=== PATIENT | female | born 1950 | race Two or more races ===

== ENCOUNTER 2023-01-07 20:46 | Inpatient (IN) | payer OTHER ==
[~2023-01-07] VITALS: Ht 162.6 cm; Wt 70.0 kg
[2023-01-07] MEDS ORDERED: ALBUTEROL MEDNEB 2.5 mg/3ml NEB ONE (20:51)
[2023-01-07] MEDS ORDERED: IPRATROPIUM BROM 0.5 MG/2.5ML INH SOL ONE (20:51)
[2023-01-07 21:00] VITALS: O2SAT 99
[2023-01-07] MEDS ORDERED: IPRATROPIUM BROM 0.5 MG/2.5ML INH SOL HHN ONE (21:15)
[2023-01-07] MEDS ORDERED: MAGNESIUM SULFATE 1GM/100ML 100 ML IV ONE (21:15)
[2023-01-07] MEDS ORDERED: ONDANSETRON HCL 4 MG/2 ML VIAL IV ONE (21:15)
[2023-01-07] MEDS ORDERED: TERBUTALINE SULFATE 1 MG/ML 1ML VIAL SC ONE (21:15)
[2023-01-07] MEDS ORDERED: ALBUTEROL SULF 2.5 MG/0.5ML(0.5%) NEB SOLN HHN ONE (21:15)
[2023-01-07] MEDS ORDERED: cefTRIAXone 1GM/50ML D5W 50 ML IV ONE (21:15)
[2023-01-07] MEDS ORDERED: PANTOPRAZOLE 40 MG/10 ML VIAL INJ IV ONE (21:15)
[2023-01-07] MEDS ORDERED: PROMETHAZINE-DM 5 ML ORAL SYRUP PO ONE (21:15)
[2023-01-07] MEDS ORDERED: AZITHROMYCIN 500MG/ 250ML 250 ML IV ONE (21:15)
[2023-01-07] MEDS ORDERED: methylPREDNISolone SOD SUCC 125 MG/2 ML VL IV ONE (21:15)
[2023-01-07] MEDS ORDERED: ALBUTEROL MEDNEB 2.5 mg/3ml NEB NEB ONE (21:15)
[2023-01-07 21:29] LABS: Basophils # (auto) 0 10 ^3/uL (0-0.2); Basophils % (auto) 0.4 % (0.0-2.0); Eosinophils # (auto) 0 10 ^3/uL (0-0.8); Eosinophils % (auto) 0.4 % (0.0-7.0); Hematocrit 45.6 % (36.0-46.0); Hemoglobin 14.9 g/dL (12.2-16.2); Lymphocytes # (auto) 1.8 10 ^3/uL (0.4-5.4); Lymphocytes % (auto) 15.4 % (10.0-50.0); Mean Corpuscular Hemoglobin 30.5 pg (28.0-32.0); Mean Corpuscular Hgb Conc. 32.7 g/dL (32.0-36.0); Mean Corpuscular Volume 93.4 fL (80.0-100.0); Monocytes # (auto) 0.9 10 ^3/uL (0-1.3); Monocytes % (auto) 8.1 % (0.0-12.0); Neutrophils # (auto) 8.7 10 ^3/uL (1.6-8.6); Neutrophils % (auto) 75.7 % (37.0-80.0); Nucleated Red Blood Cells % 0.3 %; Red Blood Cells 4.88 10^6/uL (4.0-5.20); Red Cell Distribution Width 13.7 % (11.8-14.3); White Blood Cell 11.5 10^3/uL (4.4-10.8)
[2023-01-07 21:38] LABS: Base Excess 0.1 mmol/L (-2.0-2.0)
[2023-01-07 21:44] LABS: Alanine Aminotransferase 21 U/L (7-40); Albumin 4.4 g/dL (3.2-4.8); Alkaline Phosphatase 76 U/L (46-116); Anion Gap 4 (5-15); Aspartate Aminotransferase 21 U/L (13-40); BUN/Creatinine Ratio 18.2 (10.0-20.0); Blood Urea Nitrogen 10 mg/dL (9-23); Calcium 8.9 mg/dL (8.7-10.4); Carbon Dioxide 27 mmol/L (20-30); Chloride 105 mmol/L (98-107); Glucose 128 mg/dL (74-106); Potassium 4.1 mmol/L (3.5-5.1); Sodium 136 mmol/L (136-145)
[2023-01-07 21:45] LABS: Bilirubin, Total 0.8 mg/dL (0.2-1.0); Total Protein 6.9 g/dL (5.7-8.2)
[2023-01-07 21:51] LABS: INR 1.04 (0.9-1.15); Partial Thromboplastin Time 24.2 SEC (24.5-34.5); Prothrombin Time 10.9 sec (9.3-11.8)
[2023-01-08] VITALS (9 sets, daily range): BP systolic 149; BP diastolic 78; PULSE 76–106; RESP 14–24; TEMP 98.4; O2SAT 92–98
[2023-01-08 02:06] LABS: Rapid Influenza A Negative (Negative); Rapid Influenza B Negative (Negative)
[2023-01-08 02:07] LABS: COVID19 ANTIGEN SOFIA FIA NEGATIVE (NEGATIVE)
[2023-01-08] MEDS ORDERED: ACETAMINOPHEN 325 MG TAB PO ONE (06:00)
[2023-01-08] MEDS ORDERED: NITROGLYCERIN 0.4 MG SL TAB SL PRN (07:15)
[2023-01-08] MEDS ORDERED: MORPHINE SULFATE INJ 2 MG/ml SYRG IV PRN (07:15)
[2023-01-08] MEDS ORDERED: ONDANSETRON HCL 4 MG/2 ML VIAL IV PRN (07:15)
[2023-01-08] MEDS: IPRATROPIUM BROM 0.5 MG/2.5ML INH SOL NEB PRN ×3 (09:26→21:05)
[2023-01-08] MEDS: ALBUTEROL MEDNEB 2.5 mg/3ml NEB NEB PRN ×3 (09:26→21:05)
[2023-01-08] MEDS ORDERED: AZITHROMYCIN 500MG/ 250ML 250 ML IV SCH (10:00)
[2023-01-08] MEDS ORDERED: ENOXAPARIN SOD 40 MG/0.4 ML SYRINGE SC SCH (10:00)
[2023-01-08] MEDS ORDERED: ACETAMINOPHEN 325 MG TAB PO PRN (16:45)
[2023-01-08] MEDS ORDERED: ATORVASTATIN 20 MG TAB PO SCH (22:00)
[2023-01-09 01:51] VITALS: BP 135/60; PULSE 88; RESP 24; TEMP 98.7; O2SAT 94
[2023-01-09] MEDS ORDERED: LEVOTHYROXINE SODIUM 100 MCG TAB PO SCH (07:00)
== END 2023-01-10 01:51 | disposition short-term general hospital (02) | DRG 193 ==
LOC: EDBD 20:46 → ER 20:46 → TELE 01-08 07:11
PROVIDERS: ADMIT Nurse Practitioner; ATTEND Internal Medicine
PROC: 5A09357 Assistance with Respiratory Ventilation, Less than 24 Consecutive Hours, Continuous Positive Airway Pressure (ICD-10-PCS; principal; 2023-01-07)
DX: J18.9 Pneumonia, unspecified organism (principal); J96.01 Acute respiratory failure with hypoxia; J45.902 Unspecified asthma with status asthmaticus; J44.0 Chronic obstructive pulmonary disease with (acute) lower respiratory infection; R79.89 Other specified abnormal findings of blood chemistry; Z20.822 Contact with and (suspected) exposure to COVID-19; Z88.6 Allergy status to analgesic agent; Z88.0 Allergy status to penicillin; Z88.5 Allergy status to narcotic agent; Z88.2 Allergy status to sulfonamides; Z90.11 Acquired absence of right breast and nipple
CPT/HCPCS: 36415; 36600; 80053; 82805; 83605; 83735; 83880; 84484; 85025; 85379; 85610; 85730; 87040; 87426; 87804; 93005; 94640; 94644; 94660; 96365; 96375; C9113; G0378; J0696

== ENCOUNTER 2023-05-30 02:48 | Inpatient (IN) | payer OTHER ==
[~2023-05-30] VITALS: Ht 167.6 cm; Wt 73.4 kg
[2023-05-30] VITALS (11 sets, daily range): BP systolic 125–170; BP diastolic 73–85; PULSE 60–114; RESP 18–28; TEMP 97.3–98.3; O2SAT 94–100
[2023-05-30 03:29] LABS: Basophils # (auto) 0 10 ^3/uL (0-0.2); Basophils % (auto) 0.5 % (0.0-2.0); Eosinophils # (auto) 0 10 ^3/uL (0-0.8); Eosinophils % (auto) 0.3 % (0.0-7.0); Hemoglobin 14.8 g/dL (12.2-16.2); Lymphocytes # (auto) 1.6 10 ^3/uL (0.4-5.4); Lymphocytes % (auto) 16.1 % (10.0-50.0); Mean Corpuscular Hemoglobin 30.5 pg (28.0-32.0); Mean Corpuscular Volume 92.4 fL (80.0-100.0); Monocytes # (auto) 0.5 10 ^3/uL (0-1.3); Monocytes % (auto) 5.4 % (0.0-12.0); Neutrophils # (auto) 7.7 10 ^3/uL (1.6-8.6); Neutrophils % (auto) 77.7 % (37.0-80.0); Red Blood Cells 4.87 10^6/uL (4.0-5.20); Red Cell Distribution Width 13.8 % (11.8-14.3); White Blood Cell 9.9 10^3/uL (4.4-10.8)
[2023-05-30] MEDS: TERBUTALINE SULFATE 1 MG/ML 1ML VIAL SC ONE ×2 (03:30→05:15)
[2023-05-30] MEDS: MAGNESIUM SULFATE 1GM/100ML 100 ML IV SCH (03:30)
[2023-05-30] MEDS: ACETAMINOPHEN 325 MG TAB PO ONE (03:30)
[2023-05-30 03:42] LABS: Partial Thromboplastin Time 26.5 SEC (24.5-34.5); Prothrombin Time 10.5 sec (9.3-11.8)
[2023-05-30 03:43] LABS: Alanine Aminotransferase 18 U/L (7-40); Albumin 4.2 g/dL (3.2-4.8); Alkaline Phosphatase 72 U/L (46-116); Anion Gap 5 (5-15); Aspartate Aminotransferase 17 U/L (13-40); BUN/Creatinine Ratio 12.5 (10.0-20.0); Blood Urea Nitrogen 7 mg/dL (9-23); Calcium 9.3 mg/dL (8.7-10.4); Carbon Dioxide 25 mmol/L (20-30); Chloride 107 mmol/L (98-107); Glucose 148 mg/dL (74-106); Magnesium 2.6 mg/dL (1.6-2.6); Potassium 4.1 mmol/L (3.5-5.1); Sodium 137 mmol/L (136-145)
[2023-05-30 03:44] LABS: Bilirubin, Total 1.1 mg/dL (0.2-1.0); Total Protein 7.1 g/dL (5.7-8.2)
[2023-05-30 04:01] LABS: Base Excess -0.2 mmol/L (-2.0-2.0)
[2023-05-30] MEDS: IPRATROPIUM BROM 0.5 MG/2.5ML INH SOL HHN ONE (04:11)
[2023-05-30] MEDS: ALBUTEROL SULF 2.5 MG/0.5ML(0.5%) NEB SOLN HHN ONE (04:11)
[2023-05-30] MEDS: SODIUM CHLORIDE 0.9% 1,000 ML IV ONE (05:09)
[2023-05-30] MEDS: cefTRIAXone 1GM/50ML D5W 50 ML IV ONE ×2 (05:10→14:33)
[2023-05-30] MEDS: methylPREDNISolone SOD SUCC 125 MG/2 ML VL IV ONE (05:10)
[2023-05-30] MEDS: DOXYCYCLINE 100MG/250ML 250 ML IV ONE (05:51)
[2023-05-30] MEDS ORDERED: ONDANSETRON HCL 4 MG/2 ML VIAL IV PRN (07:00)
[2023-05-30] MEDS ORDERED: ACETAMINOPHEN 325 MG TAB PO PRN (07:00)
[2023-05-30] MEDS ORDERED: MORPHINE SULFATE INJ 2 MG/ml SYRG IV PRN (07:00)
[2023-05-30] MEDS ORDERED: NITROGLYCERIN 0.4 MG SL TAB SL PRN (07:00)
[2023-05-30 07:34] LABS: Chloride 106 mmol/L (98-107); Potassium 3.6 mmol/L (3.5-5.1); Sodium 138 mmol/L (136-145)
[2023-05-30 07:35] LABS: Anion Gap 7 (5-15); Carbon Dioxide 25 mmol/L (20-30)
[2023-05-30 07:36] LABS: Calcium 8.7 mg/dL (8.5-10.1)
[2023-05-30 07:40] LABS: BUN/Creatinine Ratio 15.7 (10.0-20.0); Blood Urea Nitrogen 8 mg/dL (9-23); Glucose 125 mg/dL (74-106)
[2023-05-30 08:07] LABS: LDL Cholesterol 81 mg/dL (< 100); Triglycerides 62 mg/dL (< 150)
[2023-05-30 08:09] LABS: Cholesterol 142 mg/dL (< 200); HDL Cholesterol 50 mg/dL (40-59)
[2023-05-30] MEDS: LEVOTHYROXINE SODIUM 100 MCG TAB PO SCH (08:15)
[2023-05-30 08:18] LABS: Urine Bacteria FEW /hpf (None Seen); Urine Blood TRACE /uL (Negative); Urine Clarity Turbid (Clear); Urine Color Light-Yellow (Yellow); Urine Hyaline Cast MOD /lpf (0 - 2); Urine Mucus FEW (None Seen); Urine Protein, UAD TRACE (Negative); Urine Specific Gravity 1.015 (1.001-1.035); Urine Urobilinogen Normal (Negative); Urine WBC 3 /hpf (0 - 5); Urine pH 5.5 (5.0-9.0)
[2023-05-30] MEDS: methylPREDNISolone SOD SUCC 40 MG/ML VL IV SCH (10:13)
[2023-05-30] MEDS: ASPirin 81 mg TAB PO SCH (10:14)
[2023-05-30] MEDS: ENOXAPARIN SOD 40 MG/0.4 ML SYRINGE SC SCH (10:14)
[2023-05-30] MEDS ORDERED: hydrALAZINE HCL 20 MG/ML VL IV PRN (11:00)
[2023-05-30] MEDS ORDERED: AZITHROMYCIN 500MG/ 250ML 250 ML IV ONE ×2 (12:30→13:30)
[2023-05-30] MEDS ORDERED: cefTRIAXone 1GM/50ML D5W 50 ML IV ONE (12:30)
[2023-05-30] MEDS: NICOTINE 21MG/24 HR TOPICAL PATCH TD ONE (13:10)
[2023-05-30] MEDS: AZITHROMYCIN 500MG/ 250ML 250 ML IV ONE (14:34)
[2023-05-30] MEDS ORDERED: TIOT17SP INH (15:37)
[2023-05-30] MEDS ORDERED: LEVO100T8 PO (15:37)
[2023-05-30] MEDS ORDERED: LEVO500T91 PO (15:37)
[2023-05-30] MEDS ORDERED: ATOR20TA50 PO (15:37)
[2023-05-30] MEDS ORDERED: IPRIH INH (15:37)
[2023-05-30] MEDS ORDERED: BUDE1AER16 INH (15:37)
[2023-05-30] MEDS ORDERED: MONT-8 PO (15:37)
[2023-05-30] MEDS ORDERED: LEVA1AER INH (15:37)
[2023-05-30] MEDS: ALBUTEROL SULF 2.5 MG/0.5ML(0.5%) NEB SOLN NEB SCH (18:12)
[2023-05-30] MEDS: IPRATROPIUM BROM 0.5 MG/2.5ML INH SOL NEB SCH (18:12)
[2023-05-30] MEDS: MONTELUKAST SODIUM 10 MG TAB PO SCH (22:51)
[2023-05-30] MEDS: ATORVASTATIN 20 MG TAB PO SCH (22:51)
[2023-05-31] VITALS (19 sets, daily range): BP systolic 114–134; BP diastolic 69–72; PULSE 67–88; RESP 16–20; TEMP 97.6–98.1; O2SAT 92–100
[2023-05-31 05:48] LABS: Basophils # (auto) 0 10 ^3/uL (0-0.2); Basophils % (auto) 0.1 % (0.0-2.0); Eosinophils # (auto) 0 10 ^3/uL (0-0.8); Hematocrit 39.1 % (36.0-46.0); Hemoglobin 12.7 g/dL (12.2-16.2); Lymphocytes # (auto) 0.8 10 ^3/uL (0.4-5.4); Lymphocytes % (auto) 9.3 % (10.0-50.0); Mean Corpuscular Hemoglobin 29.9 pg (28.0-32.0); Mean Corpuscular Hgb Conc. 32.5 g/dL (32.0-36.0); Mean Corpuscular Volume 91.8 fL (80.0-100.0); Monocytes # (auto) 0.2 10 ^3/uL (0-1.3); Monocytes % (auto) 2.1 % (0.0-12.0); Neutrophils # (auto) 7.8 10 ^3/uL (1.6-8.6); Neutrophils % (auto) 88.5 % (37.0-80.0); Red Blood Cells 4.26 10^6/uL (4.0-5.20); Red Cell Distribution Width 13.2 % (11.8-14.3); White Blood Cell 8.8 10^3/uL (4.4-10.8)
[2023-05-31 06:11] LABS: Alanine Aminotransferase 16 U/L (7-40); Alkaline Phosphatase 58 U/L (46-116); Anion Gap 4 (5-15); BUN/Creatinine Ratio 21.4 (10.0-20.0); Blood Urea Nitrogen 12 mg/dL (9-23); Calcium 9.1 mg/dL (8.7-10.4); Carbon Dioxide 27 mmol/L (20-30); Chloride 103 mmol/L (98-107); Glucose 134 mg/dL (74-106); Potassium 4.5 mmol/L (3.5-5.1); Sodium 134 mmol/L (136-145)
[2023-05-31 06:12] LABS: Albumin 3.7 g/dL (3.2-4.8); Aspartate Aminotransferase 14 U/L (13-40); Bilirubin, Total 0.7 mg/dL (0.2-1.0); Total Protein 6.1 g/dL (5.7-8.2)
[2023-05-31] MEDS: AZITHROMYCIN 500MG/ 250ML 250 ML IV SCH (09:27)
[2023-05-31] MEDS: cefTRIAXone 1GM/50ML D5W 50 ML IV SCH (09:27)
[2023-05-31] MEDS: ASPirin 81 mg TAB PO SCH (09:28)
[2023-05-31] MEDS: NICOTINE 21MG/24 HR TOPICAL PATCH TD SCH (09:28)
[2023-06-01] VITALS (16 sets, daily range): BP systolic 110–154; BP diastolic 65–84; PULSE 66–111; RESP 16–20; TEMP 97.6–99.1; O2SAT 91–100
== END 2023-06-01 23:55 | disposition short-term general hospital (02) | DRG 189 ==
LOC: ER 02:48 → EDBD 02:48 → TELE 07:00 → TELE-E-ADS 15:08 → TELE-WESTW 18:27
PROVIDERS: ADMIT Nurse Practitioner; ATTEND Internal Medicine
PROC: 5A09357 Assistance with Respiratory Ventilation, Less than 24 Consecutive Hours, Continuous Positive Airway Pressure (ICD-10-PCS; principal; 2023-05-30)
DX: J96.21 Acute and chronic respiratory failure with hypoxia (principal); J15.69 Pneumonia due to other Gram-negative bacteria; I21.A1 Myocardial infarction type 2; J15.9 Unspecified bacterial pneumonia; J44.1 Chronic obstructive pulmonary disease with (acute) exacerbation; J44.0 Chronic obstructive pulmonary disease with (acute) lower respiratory infection; J45.901 Unspecified asthma with (acute) exacerbation; E66.9 Obesity, unspecified; E03.9 Hypothyroidism, unspecified; E78.5 Hyperlipidemia, unspecified; F17.210 Nicotine dependence, cigarettes, uncomplicated; Z85.3 Personal history of malignant neoplasm of breast; Z88.0 Allergy status to penicillin; Z90.11 Acquired absence of right breast and nipple; Z88.5 Allergy status to narcotic agent; Z88.2 Allergy status to sulfonamides; Z88.8 Allergy status to other drugs, medicaments and biological substances; Z68.26 Body mass index [BMI] 26.0-26.9, adult
CPT/HCPCS: 36415; 36600; 71045; 80048; 80053; 80061; 81001; 82805; 83036; 83605; 83690; 83735; 83880; 84443; 84484; 85025; 85610; 85730; 87040; 87086; 93005; 93306; 94640; 94644; 94660; G0378; J3490

== ENCOUNTER 2023-09-03 18:20 | Emergency (ER) | payer OTHER ==
[~2023-09-03] VITALS: Ht 160 cm; Wt 70.0 kg
[~2023-09-03 18:20] MED LIST: ATOR20TA50 PO; BUDE1AER16 INH; IPRIH INH; LEVA1AER INH; LEVO100T8 PO; MONT-8 PO; TIOT17SP INH
[2023-09-03 18:52] LABS: Basophils # (auto) 0.1 10 ^3/uL (0-0.2); Basophils % (auto) 0.5 % (0.0-2.0); Eosinophils # (auto) 0.1 10 ^3/uL (0-0.8); Eosinophils % (auto) 0.9 % (0.0-7.0); Hematocrit 37.4 % (36.0-46.0); Hemoglobin 12.5 g/dL (12.2-16.2); Lymphocytes # (auto) 1.8 10 ^3/uL (0.4-5.4); Mean Corpuscular Hemoglobin 30.4 pg (28.0-32.0); Mean Corpuscular Hgb Conc. 33.5 g/dL (32.0-36.0); Mean Corpuscular Volume 90.8 fL (80.0-100.0); Monocytes # (auto) 0.9 10 ^3/uL (0-1.3); Monocytes % (auto) 8.8 % (0.0-12.0); Neutrophils # (auto) 7.7 10 ^3/uL (1.6-8.6); Neutrophils % (auto) 72.8 % (37.0-80.0); Nucleated Red Blood Cells % 0.1 %; Red Blood Cells 4.12 10^6/uL (4.0-5.20); Red Cell Distribution Width 14.1 % (11.8-14.3); White Blood Cell 10.6 10^3/uL (4.4-10.8)
[2023-09-03] MEDS: ALBUTEROL SULF 2.5 MG/0.5ML(0.5%) NEB SOLN NEB ONE (18:56)
[2023-09-03] MEDS: IPRATROPIUM BROM 0.5 MG/2.5ML INH SOL NEB ONE (18:57)
[2023-09-03] MEDS: methylPREDNISolone SOD SUCC 125 MG/2 ML VL IM ONE (19:09)
[2023-09-03 19:12] LABS: Alanine Aminotransferase 19 U/L (7-40); Albumin 3.9 g/dL (3.2-4.8); Alkaline Phosphatase 64 U/L (46-116); Anion Gap 6 (5-15); Aspartate Aminotransferase 14 U/L (13-40); BUN/Creatinine Ratio 13.8 (10.0-20.0); Blood Urea Nitrogen 8 mg/dL (9-23); Calcium 8.9 mg/dL (8.7-10.4); Carbon Dioxide 26 mmol/L (20-30); Chloride 105 mmol/L (98-107); Glucose 123 mg/dL (74-106); Potassium 3.6 mmol/L (3.5-5.1); Sodium 137 mmol/L (136-145)
[2023-09-03 19:13] LABS: Bilirubin, Total 0.8 mg/dL (0.2-1.0); Total Protein 6.4 g/dL (5.7-8.2)
[2023-09-03 19:35] VITALS: PULSE 100; RESP 25; O2SAT 98
[2023-09-03 21:30] VITALS: BP 136/64; PULSE 82; RESP 18; TEMP 98.7; O2SAT 98
== END 2023-09-03 21:44 | disposition home or self-care (01) ==
LOC: EDBD 18:20 → ER 18:29
DX: J45.901 Unspecified asthma with (acute) exacerbation (principal); J44.89 Other specified chronic obstructive pulmonary disease; F17.210 Nicotine dependence, cigarettes, uncomplicated; Z85.9 Personal history of malignant neoplasm, unspecified; Z98.890 Other specified postprocedural states; Z79.899 Other long term (current) drug therapy; Z88.0 Allergy status to penicillin; Z88.2 Allergy status to sulfonamides; Z88.6 Allergy status to analgesic agent; Z88.8 Allergy status to other drugs, medicaments and biological substances
CPT/HCPCS: 36415; 71045; 80053; 85025; 93005; 94640; 96372; 99285; J2919; J7644

== ENCOUNTER 2023-10-05 01:28 | Inpatient (IN) | payer OTHER ==
[2023-10-05] VITALS (12 sets, daily range): BP systolic 133–134; BP diastolic 61–78; PULSE 69–106; RESP 14–22; TEMP 97.6–98.2; O2SAT 3–100
[~2023-10-05] VITALS: Ht 167.6 cm; Wt 70.6 kg
[~2023-10-05 01:28] MED LIST changes: -BUDE1AER16 INH; +BUDE1AER16 PO
[2023-10-05] MEDS: methylPREDNISolone SOD SUCC 125 MG/2 ML VL IV ONE (02:01)
[2023-10-05] MEDS: IPRATROPIUM BROM 0.5 MG/2.5ML INH SOL HHN ONE (02:06)
[2023-10-05] MEDS: ALBUTEROL SULF 2.5 MG/0.5ML(0.5%) NEB SOLN HHN ONE (02:06)
[2023-10-05 02:21] LABS: Anion Gap 5 (5-15); Basophils # (auto) 0 10 ^3/uL (0-0.2); Basophils % (auto) 0.7 % (0.0-2.0); Carbon Dioxide 27 mmol/L (20-30); Chloride 108 mmol/L (98-107); Eosinophils # (auto) 0.1 10 ^3/uL (0-0.8); Eosinophils % (auto) 1.2 % (0.0-7.0); Hematocrit 37.5 % (36.0-46.0); Hemoglobin 12.4 g/dL (12.2-16.2); Lymphocytes # (auto) 1.8 10 ^3/uL (0.4-5.4); Lymphocytes % (auto) 25.8 % (10.0-50.0); Mean Corpuscular Hemoglobin 30.5 pg (28.0-32.0); Mean Corpuscular Hgb Conc. 32.9 g/dL (32.0-36.0); Mean Corpuscular Volume 92.5 fL (80.0-100.0); Monocytes # (auto) 0.6 10 ^3/uL (0-1.3); Monocytes % (auto) 9.1 % (0.0-12.0); Neutrophils # (auto) 4.4 10 ^3/uL (1.6-8.6); Neutrophils % (auto) 63.2 % (37.0-80.0); Platelet Count (auto) 294 10^3/uL (140-450); Potassium 3.6 mmol/L (3.5-5.1); Red Blood Cells 4.06 10^6/uL (4.0-5.20); Red Cell Distribution Width 14.3 % (11.8-14.3); Sodium 140 mmol/L (136-145)
[2023-10-05 02:22] LABS: Calcium 8.8 mg/dL (8.7-10.4)
[2023-10-05 02:26] LABS: Glucose 112 mg/dL (74-106)
[2023-10-05 02:27] LABS: BUN/Creatinine Ratio 15.7 (10.0-20.0); Blood Urea Nitrogen 8 mg/dL (9-23)
[2023-10-05 03:17] LABS: Rapid Influenza A Negative (Negative); Rapid Influenza B Negative (Negative)
[2023-10-05 03:18] LABS: COVID19 ANTIGEN SOFIA FIA NEGATIVE (NEGATIVE)
[2023-10-05 03:30] LABS: Base Excess 2.6 mmol/L (-2.0-2.0)
[2023-10-05] MEDS ORDERED: ACETAMINOPHEN 325 MG TAB PO PRN (05:00)
[2023-10-05] MEDS ORDERED: ONDANSETRON HCL 4 MG/2 ML VIAL IV PRN (05:00)
[2023-10-05] MEDS ORDERED: NITROGLYCERIN 0.4 MG SL TAB SL PRN (05:00)
[2023-10-05] MEDS: LEVOTHYROXINE SODIUM 100 MCG TAB PO SCH (06:51)
[2023-10-05] MEDS ORDERED: ASPirin 81 mg TAB PO SCH (10:00)
[2023-10-05] MEDS: NICOTINE 14 MG/24HR TOPICAL PATCH TD SCH (10:00)
[2023-10-05] MEDS: FUROSEMIDE 40 MG TAB PO SCH (10:13)
[2023-10-05] MEDS: ENOXAPARIN SOD 40 MG/0.4 ML SYRINGE SC SCH (10:13)
[2023-10-05] MEDS: IPRATROPIUM BROM 0.5 MG/2.5ML INH SOL NEB PRN (10:16)
[2023-10-05] MEDS: ALBUTEROL SULF 2.5 MG/0.5ML(0.5%) NEB SOLN NEB PRN (10:16)
[2023-10-05] MEDS: AZITHROMYCIN 500MG/ 250ML 250 ML IV ONE (12:01)
[2023-10-05] MEDS ORDERED: AZIT-43 PO (18:54)
[2023-10-05] MEDS ORDERED: ATORVASTATIN 20 MG TAB PO SCH (22:00)
[2023-10-06] VITALS (10 sets, daily range): BP systolic 119–147; BP diastolic 63–67; PULSE 57–89; RESP 16–20; TEMP 97.8–98.3; O2SAT 92–100
[2023-10-06 05:29] LABS: Basophils # (auto) 0.1 10 ^3/uL (0-0.2); Basophils % (auto) 0.7 % (0.0-2.0); Eosinophils # (auto) 0 10 ^3/uL (0-0.8); Eosinophils % (auto) 0.2 % (0.0-7.0); Hemoglobin 11.7 g/dL (12.2-16.2); Lymphocytes # (auto) 1.8 10 ^3/uL (0.4-5.4); Lymphocytes % (auto) 16.3 % (10.0-50.0); Mean Corpuscular Hemoglobin 30.9 pg (28.0-32.0); Mean Corpuscular Hgb Conc. 33.4 g/dL (32.0-36.0); Mean Corpuscular Volume 92.4 fL (80.0-100.0); Monocytes % (auto) 8.5 % (0.0-12.0); Neutrophils # (auto) 8.3 10 ^3/uL (1.6-8.6); Neutrophils % (auto) 74.3 % (37.0-80.0); Nucleated Red Blood Cells % 0.1 %; Platelet Count (auto) 282 10^3/uL (140-450); Red Blood Cells 3.79 10^6/uL (4.0-5.20); White Blood Cell 11.2 10^3/uL (4.4-10.8)
[2023-10-06 05:45] LABS: Alanine Aminotransferase 17 U/L (7-40); Albumin 3.7 g/dL (3.2-4.8); Alkaline Phosphatase 55 U/L (46-116); Anion Gap 3 (5-15); Aspartate Aminotransferase 14 U/L (13-40); Bilirubin, Total 0.7 mg/dL (0.2-1.0); Blood Urea Nitrogen 13 mg/dL (9-23); Carbon Dioxide 32 mmol/L (20-30); Chloride 105 mmol/L (98-107); Glucose 95 mg/dL (74-106); Potassium 3.7 mmol/L (3.5-5.1); Sodium 140 mmol/L (136-145)
[2023-10-06] MEDS: methylPREDNISolone SOD SUCC 40 MG/ML VL IV SCH (09:36)
[2023-10-06] MEDS: AZITHROMYCIN 500MG/ 250ML 250 ML IV SCH (09:37)
[2023-10-06 15:57] LABS: Urine Bacteria FEW /hpf (None Seen); Urine Blood TRACE /uL (Negative); Urine Clarity Turbid (Clear); Urine Color Colorless (Yellow); Urine Protein, UAD Negative (Negative); Urine Specific Gravity 1.009 (1.001-1.035); Urine Urobilinogen Normal (Negative); Urine WBC 575 /hpf (0 - 5); Urine WBC Clumps PRESENT /hpf (None Seen); Urine pH 5.5 (5.0-9.0)
[2023-10-06] MEDS ORDERED: PRED20TA2 PO (17:17)
[2023-10-06] MEDS ORDERED: AZIT-43 PO (17:17)
[2023-10-06] MEDS ORDERED: NITR-52 PO (17:17)
== END 2023-10-06 19:33 | disposition home or self-care (01) | DRG 189 ==
LOC: EDBD 01:28 → EDUNIT# 01:28 → ER 01:28 → TELE 04:52 → TELE-WESTW 15:19
PROVIDERS: ADMIT Internal Medicine Pulmonary Disease; ATTEND Internal Medicine Pulmonary Disease
DX: J96.21 Acute and chronic respiratory failure with hypoxia (principal); I21.A1 Myocardial infarction type 2; J44.1 Chronic obstructive pulmonary disease with (acute) exacerbation; J45.901 Unspecified asthma with (acute) exacerbation; N39.0 Urinary tract infection, site not specified; E03.9 Hypothyroidism, unspecified; Z20.822 Contact with and (suspected) exposure to COVID-19; F17.210 Nicotine dependence, cigarettes, uncomplicated; I25.10 Atherosclerotic heart disease of native coronary artery without angina pectoris; I50.9 Heart failure, unspecified; E66.9 Obesity, unspecified; I27.23 Pulmonary hypertension due to lung diseases and hypoxia; N18.9 Chronic kidney disease, unspecified; Z88.0 Allergy status to penicillin; Z99.81 Dependence on supplemental oxygen; Z90.13 Acquired absence of bilateral breasts and nipples; Z80.0 Family history of malignant neoplasm of digestive organs; Z85.3 Personal history of malignant neoplasm of breast; Z68.25 Body mass index [BMI] 25.0-25.9, adult
CPT/HCPCS: 36415; 36600; 71045; 80048; 80053; 81001; 82805; 83605; 83880; 84443; 84484; 85025; 85379; 87040; 87081; 87426; 87804; 93005; 94640; 96365; 96372; 96375; 99291; G0378

== ENCOUNTER 2023-10-18 14:37 | Inpatient (IN) | payer OTHER ==
[~2023-10-18] VITALS: Ht 160 cm; Wt 72.1 kg
[2023-10-18 01:00] VITALS: BP 117/76; PULSE 93; RESP 18; TEMP 97.6; O2SAT 95
[~2023-10-18 14:37] MED LIST changes: +AZIT-43 PO; +NITR-52 PO; +PRED20TA2 PO
[2023-10-18 15:09] VITALS: PULSE 115; RESP 24; O2SAT 93
[2023-10-18] MEDS: methylPREDNISolone SOD SUCC 125 MG/2 ML VL IM ONE (15:24)
[2023-10-18 15:39] LABS: Basophils # (auto) 0 10 ^3/uL (0-0.2); Basophils % (auto) 0.4 % (0.0-2.0); Eosinophils # (auto) 0.1 10 ^3/uL (0-0.8); Eosinophils % (auto) 1.4 % (0.0-7.0); Hematocrit 38.5 % (36.0-46.0); Lymphocytes # (auto) 2.4 10 ^3/uL (0.4-5.4); Lymphocytes % (auto) 22.5 % (10.0-50.0); Mean Corpuscular Hgb Conc. 33.8 g/dL (32.0-36.0); Mean Corpuscular Volume 91.5 fL (80.0-100.0); Monocytes # (auto) 0.7 10 ^3/uL (0-1.3); Monocytes % (auto) 6.4 % (0.0-12.0); Neutrophils # (auto) 7.4 10 ^3/uL (1.6-8.6); Neutrophils % (auto) 69.3 % (37.0-80.0); Platelet Count (auto) 258 10^3/uL (140-450); Red Blood Cells 4.21 10^6/uL (4.0-5.20); Red Cell Distribution Width 13.6 % (11.8-14.3); White Blood Cell 10.6 10^3/uL (4.4-10.8)
[2023-10-18] MEDS: methylPREDNISolone SOD SUCC 125 MG/2 ML VL IV ONE (15:50)
[2023-10-18 15:57] LABS: Alanine Aminotransferase 27 U/L (7-40); Albumin 4.1 g/dL (3.2-4.8); Alkaline Phosphatase 63 U/L (46-116); Anion Gap 5 (5-15); Aspartate Aminotransferase 16 U/L (13-40); BUN/Creatinine Ratio 12.5 (10.0-20.0); Bilirubin, Total 0.8 mg/dL (0.2-1.0); Blood Urea Nitrogen 7 mg/dL (9-23); Calcium 9.3 mg/dL (8.7-10.4); Carbon Dioxide 26 mmol/L (20-30); Chloride 106 mmol/L (98-107); Glucose 116 mg/dL (74-106); Sodium 137 mmol/L (136-145)
[2023-10-18 15:58] LABS: Total Protein 6.5 g/dL (5.7-8.2)
[2023-10-18] MEDS: ALBUTEROL SULF 2.5 MG/0.5ML(0.5%) NEB SOLN NEB ONE (16:01)
[2023-10-18] MEDS: IPRATROPIUM BROM 0.5 MG/2.5ML INH SOL NEB ONE (16:01)
[2023-10-18] MEDS: AZITHROMYCIN 500MG/ 250ML 250 ML IV ONE (16:34)
[2023-10-18 18:17] LABS: COVID19 ANTIGEN SOFIA FIA NEGATIVE (NEGATIVE); Rapid Influenza A Negative (Negative); Rapid Influenza B Negative (Negative)
[2023-10-18] MEDS ORDERED: DOCUSATE SOD 100 MG CAP PO PRN (18:30)
[2023-10-18] MEDS ORDERED: HYDROcodone-ACET 5/325MG TAB PO PRN (18:30)
[2023-10-18] MEDS ORDERED: HYDROmorphone HCL 2 MG/ML VL/or syr IV PRN (18:30)
[2023-10-18] MEDS ORDERED: ONDANSETRON HCL 4 MG/2 ML VIAL IV PRN (18:30)
[2023-10-18] MEDS ORDERED: ACETAMINOPHEN 325 MG TAB PO PRN (18:30)
[2023-10-18] MEDS: methylPREDNISolone SOD SUCC 125 MG/2 ML VL IV SCH (18:32)
[2023-10-18 18:40] LABS: Urine Bacteria None Seen /hpf (None Seen)
[2023-10-18 19:03] LABS: Urine Blood Negative /uL (Negative); Urine Clarity Clear (Clear); Urine Color Light-Yellow (Yellow); Urine Protein, UAD Negative (Negative); Urine Specific Gravity 1.009 (1.001-1.035); Urine Urobilinogen Normal (Negative); Urine WBC 1 /hpf (0 - 5)
[2023-10-18] MEDS: ALBUTEROL SULF 2.5 MG/0.5ML(0.5%) NEB SOLN NEB SCH (19:28)
[2023-10-18] MEDS: IPRATROPIUM BROM 0.5 MG/2.5ML INH SOL NEB SCH (19:28)
[2023-10-18 19:38] VITALS: BP 125/73; PULSE 101; RESP 20; O2SAT 96
[2023-10-18 19:38] LABS: Base Excess -2.6 mmol/L (-2.0-3.0)
[2023-10-18] MEDS: BUDESONIDE FORMOTEROL FUMARATE PO SCH (22:00)
[2023-10-18] MEDS: SODIUM CHLOR 0.9% PF (SALINE LOCK) 10ML VIAL/SYR IV SCH (22:25)
[2023-10-18 22:42] VITALS: BP 126/69; PULSE 104; RESP 21; TEMP 97.5; O2SAT 93
[2023-10-18 23:11] VITALS: PULSE 104; RESP 18; O2SAT 95
[2023-10-18 23:12] VITALS: O2SAT 95
[2023-10-19] VITALS (13 sets, daily range): BP systolic 107–135; BP diastolic 57–92; PULSE 67–94; RESP 16–20; TEMP 97.3–98.2; O2SAT 94–98
[2023-10-19] MEDS: LEVOTHYROXINE SODIUM 100 MCG TAB PO SCH (06:31)
[2023-10-19 07:05] LABS: Basophils # (auto) 0 10 ^3/uL (0-0.2); Basophils % (auto) 0.1 % (0.0-2.0); Eosinophils # (auto) 0 10 ^3/uL (0-0.8); Hematocrit 38.5 % (36.0-46.0); Hemoglobin 12.9 g/dL (12.2-16.2); Lymphocytes # (auto) 0.6 10 ^3/uL (0.4-5.4); Lymphocytes % (auto) 6.4 % (10.0-50.0); Mean Corpuscular Hemoglobin 30.8 pg (28.0-32.0); Mean Corpuscular Hgb Conc. 33.6 g/dL (32.0-36.0); Mean Corpuscular Volume 91.9 fL (80.0-100.0); Monocytes # (auto) 0.1 10 ^3/uL (0-1.3); Neutrophils # (auto) 8.5 10 ^3/uL (1.6-8.6); Neutrophils % (auto) 92.5 % (37.0-80.0); Nucleated Red Blood Cells % 0.1 %; Platelet Count (auto) 261 10^3/uL (140-450); Red Blood Cells 4.19 10^6/uL (4.0-5.20); Red Cell Distribution Width 13.7 % (11.8-14.3); White Blood Cell 9.2 10^3/uL (4.4-10.8)
[2023-10-19 07:21] LABS: Alanine Aminotransferase 24 U/L (7-40); Albumin 4.3 g/dL (3.2-4.8); Alkaline Phosphatase 64 U/L (46-116); Anion Gap 4 (5-15); Aspartate Aminotransferase 14 U/L (13-40); BUN/Creatinine Ratio 20.6 (10.0-20.0); Blood Urea Nitrogen 13 mg/dL (9-23); Calcium 9.5 mg/dL (8.7-10.4); Carbon Dioxide 29 mmol/L (20-30); Chloride 105 mmol/L (98-107); Glucose 151 mg/dL (74-106); Potassium 4.6 mmol/L (3.5-5.1); Sodium 138 mmol/L (136-145)
[2023-10-19 07:22] LABS: Bilirubin, Total 0.9 mg/dL (0.2-1.0); Total Protein 6.7 g/dL (5.7-8.2)
[2023-10-19] MEDS: methylPREDNISolone SOD SUCC 125 MG/2 ML VL IV SCH (09:54)
[2023-10-19] MEDS: ATORVASTATIN 20 MG TAB PO SCH (09:54)
[2023-10-19] MEDS: ENOXAPARIN SOD 40 MG/0.4 ML SYRINGE SC SCH (09:54)
[2023-10-19] MEDS: MONTELUKAST SODIUM 10 MG TAB PO SCH (09:55)
[2023-10-19] MEDS: TIOTROPIUM BROMIDE MONOHYDRATE PO SCH (09:59)
[2023-10-19 10:04] LABS: Triglycerides 50 mg/dL (< 150)
[2023-10-19 10:05] LABS: LDL Cholesterol 97 mg/dL (< 100)
[2023-10-19 10:07] LABS: Cholesterol 189 mg/dL (< 200); HDL Cholesterol 81 mg/dL (40-59)
[2023-10-19 11:10] LABS: T3 Total 0.82 ng/mL (0.60-1.81)
[2023-10-19 11:11] LABS: Free T3 2.55 pg/mL (2.3-4.2)
[2023-10-19] MEDS: AZITHROMYCIN 500MG/ 250ML 250 ML IV ONE (11:19)
[2023-10-19] MEDS: NICOTINE 21MG/24 HR TOPICAL PATCH TD ONE (17:04)
[2023-10-19] MEDS: CYANOCOBALAMIN (B-12) 1000 MCG/1 ML VIAL IM ONE (17:04)
[2023-10-19] MEDS: ERGOCALCIFEROL 50,000 UNIT(1.25MG) CAP PO SCH (18:37)
[2023-10-19] MEDS: IOHEXOL 350 MG/ML 100ML IJ ONE (18:38)
[2023-10-19] MEDS: cefTRIAXone 1GM/50ML D5W 50 ML IV ONE (21:41)
[2023-10-20] VITALS (12 sets, daily range): BP systolic 109–145; BP diastolic 56–79; PULSE 62–80; RESP 16–20; TEMP 97–98.5; O2SAT 95–100
[2023-10-20 07:05] LABS: Basophils # (auto) 0 10 ^3/uL (0-0.2); Basophils % (auto) 0.1 % (0.0-2.0); Eosinophils # (auto) 0 10 ^3/uL (0-0.8); Hematocrit 35.4 % (36.0-46.0); Hemoglobin 11.8 g/dL (12.2-16.2); Lymphocytes # (auto) 1.3 10 ^3/uL (0.4-5.4); Lymphocytes % (auto) 6.8 % (10.0-50.0); Mean Corpuscular Hemoglobin 30.9 pg (28.0-32.0); Mean Corpuscular Hgb Conc. 33.2 g/dL (32.0-36.0); Mean Corpuscular Volume 93.2 fL (80.0-100.0); Monocytes # (auto) 1.2 10 ^3/uL (0-1.3); Monocytes % (auto) 5.9 % (0.0-12.0); Neutrophils # (auto) 17.4 10 ^3/uL (1.6-8.6); Neutrophils % (auto) 87.2 % (37.0-80.0); Platelet Count (auto) 249 10^3/uL (140-450); Red Cell Distribution Width 13.7 % (11.8-14.3)
[2023-10-20 07:22] LABS: Alanine Aminotransferase 26 U/L (7-40); Alkaline Phosphatase 53 U/L (46-116); Anion Gap 3 (5-15); Aspartate Aminotransferase 12 U/L (13-40); BUN/Creatinine Ratio 19.3 (10.0-20.0); Bilirubin, Total 0.7 mg/dL (0.2-1.0); Blood Urea Nitrogen 11 mg/dL (9-23); Calcium 9.2 mg/dL (8.7-10.4); Carbon Dioxide 31 mmol/L (20-30); Chloride 105 mmol/L (98-107); Glucose 98 mg/dL (74-106); Potassium 3.7 mmol/L (3.5-5.1); Sodium 139 mmol/L (136-145); Total Protein 6.1 g/dL (5.7-8.2)
[2023-10-20] MEDS ORDERED: ALBUTEROL SULF 2.5 MG/0.5ML(0.5%) NEB SOLN NEB SCH (09:30)
[2023-10-20] MEDS: NICOTINE 21MG/24 HR TOPICAL PATCH TD SCH (10:00)
[2023-10-20] MEDS: methylPREDNISolone SOD SUCC 125 MG/2 ML VL IV SCH (10:06)
[2023-10-20] MEDS: AZITHROMYCIN 500MG/ 250ML 250 ML IV SCH (10:06)
[2023-10-20] MEDS: cefTRIAXone 1GM/50ML D5W 50 ML IV SCH (10:07)
[2023-10-20] MEDS: ALBUTEROL SULF 2.5 MG/0.5ML(0.5%) NEB SOLN NEB SCH (11:50)
[2023-10-21] VITALS (9 sets, daily range): BP systolic 123–141; BP diastolic 80–84; PULSE 65–80; RESP 16–20; TEMP 97.9–98.4; O2SAT 94–99
[2023-10-21 06:42] LABS: Basophils # (auto) 0 10 ^3/uL (0-0.2); Basophils % (auto) 0.1 % (0.0-2.0); Eosinophils # (auto) 0 10 ^3/uL (0-0.8); Hematocrit 36.2 % (36.0-46.0); Hemoglobin 12.1 g/dL (12.2-16.2); Lymphocytes # (auto) 1.4 10 ^3/uL (0.4-5.4); Lymphocytes % (auto) 11.7 % (10.0-50.0); Mean Corpuscular Hemoglobin 30.4 pg (28.0-32.0); Mean Corpuscular Hgb Conc. 33.4 g/dL (32.0-36.0); Mean Corpuscular Volume 91.1 fL (80.0-100.0); Monocytes # (auto) 0.8 10 ^3/uL (0-1.3); Neutrophils # (auto) 9.7 10 ^3/uL (1.6-8.6); Neutrophils % (auto) 81.2 % (37.0-80.0); Nucleated Red Blood Cells % 0.1 %; Platelet Count (auto) 261 10^3/uL (140-450); Red Blood Cells 3.97 10^6/uL (4.0-5.20); Red Cell Distribution Width 13.9 % (11.8-14.3)
[2023-10-21 06:47] LABS: Alanine Aminotransferase 22 U/L (7-40); Alkaline Phosphatase 55 U/L (46-116); Anion Gap 2 (5-15); Calcium 9.2 mg/dL (8.7-10.4); Carbon Dioxide 33 mmol/L (20-30); Chloride 107 mmol/L (98-107); Glucose 93 mg/dL (74-106); Potassium 3.3 mmol/L (3.5-5.1); Sodium 142 mmol/L (136-145)
[2023-10-21 06:48] LABS: BUN/Creatinine Ratio 23.7 (10.0-20.0); Blood Urea Nitrogen 14 mg/dL (9-23)
[2023-10-21 06:49] LABS: Aspartate Aminotransferase 13 U/L (13-40)
[2023-10-21 06:50] LABS: Bilirubin, Total 0.7 mg/dL (0.2-1.0); Total Protein 6.3 g/dL (5.7-8.2)
[2023-10-21 06:53] LABS: Albumin 4.1 g/dL (3.2-4.8)
[2023-10-21] MEDS ORDERED: CYANOCOBALAMIN (B-12) 1000 MCG/1 ML VIAL SUBCUT ONE (07:30)
[2023-10-21] MEDS ORDERED: AZIT-185 PO (10:42)
[2023-10-21] MEDS ORDERED: AUG875T PO (10:42)
[2023-10-21] MEDS ORDERED: ERGO1CAP23 PO (10:42)
[2023-10-21] MEDS ORDERED: NIC21P TD (10:42)
[2023-10-21] MEDS ORDERED: PRED20TA2 PO (10:59)
[2023-10-21] MEDS: CYANOCOBALAMIN (B-12) 1000 MCG/1 ML VIAL IM ONE (11:00)
== END 2023-10-21 12:30 | disposition home or self-care (01) | DRG 177 ==
LOC: EDUNIT# 14:37 → ER 14:37 → EDBD 14:37 → OVERFLOW 18:20 → CENTRAL 21:55
PROVIDERS: ADMIT Internal Medicine Pulmonary Disease; ATTEND Internal Medicine Pulmonary Disease
DX: J15.69 Pneumonia due to other Gram-negative bacteria (principal); J96.21 Acute and chronic respiratory failure with hypoxia; J44.1 Chronic obstructive pulmonary disease with (acute) exacerbation; J45.901 Unspecified asthma with (acute) exacerbation; J44.0 Chronic obstructive pulmonary disease with (acute) lower respiratory infection; J15.9 Unspecified bacterial pneumonia; E03.9 Hypothyroidism, unspecified; Z20.822 Contact with and (suspected) exposure to COVID-19; E55.9 Vitamin D deficiency, unspecified; I27.23 Pulmonary hypertension due to lung diseases and hypoxia; E53.8 Deficiency of other specified B group vitamins; E07.81 Sick-euthyroid syndrome; T38.0X5A Adverse effect of glucocorticoids and synthetic analogues, initial encounter; D72.829 Elevated white blood cell count, unspecified; F17.210 Nicotine dependence, cigarettes, uncomplicated; Z88.0 Allergy status to penicillin; Z90.11 Acquired absence of right breast and nipple; Z85.3 Personal history of malignant neoplasm of breast; Z71.6 Tobacco abuse counseling; Z80.0 Family history of malignant neoplasm of digestive organs; Z99.81 Dependence on supplemental oxygen; Y92.89 Other specified places as the place of occurrence of the external cause
CPT/HCPCS: 36415; 36600; 71045; 71275; 80053; 80061; 81001; 82306; 82607; 82805; 83036; 83605; 83615; 83880; 84443; 84480; 84481; 84484; 85025; 87081; 87426; 87804; 93005; 93970; 94640; 99291; G0378

== ENCOUNTER 2023-12-01 03:10 | Inpatient (IN) | payer OTHER ==
[2023-12-01] VITALS (20 sets, daily range): BP systolic 95–133; BP diastolic 51–86; PULSE 44–94; RESP 15–84; TEMP 98–98.6; O2SAT 65–100
[~2023-12-01] VITALS: Ht 165.1 cm; Wt 44.9 kg
[~2023-12-01 03:10] MED LIST changes: +AZIT-185 PO; -AZIT-43 PO; +ERGO1CAP23 PO; +NIC21P TD; -NITR-52 PO
[2023-12-01] MEDS: ALBUTEROL SULF 2.5 MG/0.5ML(0.5%) NEB SOLN NEB ONE ×2 (03:49→08:26)
[2023-12-01] MEDS: IPRATROPIUM BROM 0.5 MG/2.5ML INH SOL NEB ONE ×2 (03:49→08:26)
[2023-12-01 04:03] LABS: Anion Gap 4 (5-15); Carbon Dioxide 31 mmol/L (20-31); Chloride 104 mmol/L (98-107); Sodium 139 mmol/L (136-145)
[2023-12-01 04:04] LABS: Calcium 9.4 mg/dL (8.7-10.4)
[2023-12-01 04:05] LABS: Basophils # (auto) 0.1 10 ^3/uL (0-0.2); Basophils % (auto) 0.5 % (0.0-2.0); Eosinophils # (auto) 0.1 10 ^3/uL (0-0.8); Hematocrit 41.9 % (36.0-46.0); Hemoglobin 13.9 g/dL (12.2-16.2); Lymphocytes % (auto) 32.1 % (10.0-50.0); Mean Corpuscular Hemoglobin 30.5 pg (28.0-32.0); Mean Corpuscular Hgb Conc. 33.3 g/dL (32.0-36.0); Mean Corpuscular Volume 91.5 fL (80.0-100.0); Monocytes # (auto) 0.7 10 ^3/uL (0-1.3); Monocytes % (auto) 7.6 % (0.0-12.0); Neutrophils # (auto) 5.4 10 ^3/uL (1.6-8.6); Neutrophils % (auto) 58.8 % (37.0-80.0); Nucleated Red Blood Cells % 0.2 %; Platelet Count (auto) 262 10^3/uL (140-450); Red Blood Cells 4.57 10^6/uL (4.0-5.20); Red Cell Distribution Width 13.3 % (11.8-14.3); White Blood Cell 9.3 10^3/uL (4.4-10.8)
[2023-12-01 04:09] LABS: BUN/Creatinine Ratio 9.8 (10.0-20.0); Blood Urea Nitrogen 6 mg/dL (9-23); Glucose 89 mg/dL (74-106)
[2023-12-01] MEDS: methylPREDNISolone SOD SUCC 125 MG/2 ML VL IV ONE (04:42)
[2023-12-01] MEDS ORDERED: ASPirin 81 mg TAB PO ONE (05:00)
[2023-12-01] MEDS ORDERED: DOCUSATE SOD 100 MG CAP PO PRN (10:15)
[2023-12-01] MEDS ORDERED: ACETAMINOPHEN 325 MG TAB PO PRN (10:15)
[2023-12-01] MEDS ORDERED: NITROGLYCERIN 0.4 MG SL TAB SL PRN (10:15)
[2023-12-01] MEDS ORDERED: HYDROcodone-ACET 5/325MG TAB PO PRN (10:15)
[2023-12-01] MEDS ORDERED: ONDANSETRON HCL 4 MG/2 ML VIAL IV PRN (10:15)
[2023-12-01 10:55] LABS: Hematocrit 42.3 % (36.0-46.0); Hemoglobin 14.1 g/dL (12.2-16.2); Mean Corpuscular Hemoglobin 30.3 pg (28.0-32.0); Mean Corpuscular Hgb Conc. 33.4 g/dL (32.0-36.0); Mean Corpuscular Volume 90.9 fL (80.0-100.0); Platelet Count (auto) 271 10^3/uL (140-450); Red Blood Cells 4.65 10^6/uL (4.0-5.20); Red Cell Distribution Width 13.5 % (11.8-14.3); White Blood Cell 10.8 10^3/uL (4.4-10.8)
[2023-12-01 11:03] LABS: Basophils % (manual) 0 (0.0-2.0); Blast Cells 0; Eosinophils % (manual) 0 (0-7); Metamyelocytes % 0; Myelocytes % 0; Promyelocytes % 0; Reactive Lymphocytes 0
[2023-12-01] MEDS: HEPARIN SODIUM (PORCINE) 5000 UNITS/ML 1ML VIAL IV ONE (11:03)
[2023-12-01] MEDS: HEPARIN DRIP/D5W 100UNITS/ML 250 ML IV SCH (11:05)
[2023-12-01 11:10] LABS: INR 1.01 (0.9-1.15); Partial Thromboplastin Time 24.8 SEC (24.5-34.5); Prothrombin Time 10.7 sec (9.3-11.8)
[2023-12-01 11:35] LABS: Band Neutrophils % (manual) 2; Lymphocytes % (manual) 3 (10.0-50.0); Monocytes % (manual) 1 (0-12)
[2023-12-01 11:36] LABS: Platelet Estimate Adequate; RBC Morphology Normal
[2023-12-01 11:51] LABS: Urine Bacteria FEW /hpf (None Seen); Urine Blood TRACE /uL (Negative); Urine Clarity Turbid (Clear); Urine Color Light-Yellow (Yellow); Urine Mucus FEW (None Seen); Urine Protein, UAD Negative (Negative); Urine Urobilinogen Normal (Negative); Urine WBC 24 /hpf (0 - 5)
[2023-12-01] MEDS: methylPREDNISolone SOD SUCC 125 MG/2 ML VL IV SCH (12:00)
[2023-12-01] MEDS: fentaNYL CITRATE 100 MCG/2 ML VL ONE (12:22)
[2023-12-01] MEDS: MIDAZOLAM HCL 2MG/2ML 2ml VIAL (1mg/ml) ONE (12:22)
[2023-12-01] MEDS: ANGIOMAX 250 MG VIAL IV ONE (12:22)
[2023-12-01] MEDS: VERAPAMIL 2.5MG/ML INJ 2ML VIAL IV ONE (12:22)
[2023-12-01] MEDS: LIDOCAINE 2%HCL (LOCAL ANESTH.) INJ 20ML MDV ONE (12:23)
[2023-12-01] MEDS: SODIUM CHL 0.9% 0 ML ONE (12:23)
[2023-12-01] MEDS: ALBUTEROL SULF 2.5 MG/0.5ML(0.5%) NEB SOLN NEB SCH (14:00)
[2023-12-01] MEDS: IPRATROPIUM BROM 0.5 MG/2.5ML INH SOL NEB SCH (14:00)
[2023-12-01] MEDS: SODIUM CHLOR 0.9% PF (SALINE LOCK) 10ML VIAL/SYR IV SCH (14:00)
[2023-12-01 17:36] LABS: INR 1.02 (0.9-1.15); Partial Thromboplastin Time 24.2 SEC (24.5-34.5); Prothrombin Time 10.8 sec (9.3-11.8)
[2023-12-02] VITALS (19 sets, daily range): BP systolic 105–123; BP diastolic 59–76; PULSE 68–113; RESP 14–23; TEMP 97.6–98.8; O2SAT 90–100
[2023-12-02 06:52] LABS: Basophils # (auto) 0.1 10 ^3/uL (0-0.2); Basophils % (auto) 0.5 % (0.0-2.0); Eosinophils # (auto) 0 10 ^3/uL (0-0.8); Hematocrit 41.3 % (36.0-46.0); Hemoglobin 13.7 g/dL (12.2-16.2); Lymphocytes # (auto) 0.6 10 ^3/uL (0.4-5.4); Lymphocytes % (auto) 4.4 % (10.0-50.0); Mean Corpuscular Hemoglobin 30.2 pg (28.0-32.0); Mean Corpuscular Hgb Conc. 33.2 g/dL (32.0-36.0); Mean Corpuscular Volume 91.2 fL (80.0-100.0); Monocytes # (auto) 0.3 10 ^3/uL (0-1.3); Monocytes % (auto) 2.7 % (0.0-12.0); Neutrophils # (auto) 11.8 10 ^3/uL (1.6-8.6); Neutrophils % (auto) 92.4 % (37.0-80.0); Platelet Count (auto) 290 10^3/uL (140-450); Red Blood Cells 4.53 10^6/uL (4.0-5.20); Red Cell Distribution Width 13.2 % (11.8-14.3); White Blood Cell 12.8 10^3/uL (4.4-10.8)
[2023-12-02 07:10] LABS: Alanine Aminotransferase 19 U/L (7-40); Albumin 4.2 g/dL (3.2-4.8); Alkaline Phosphatase 54 U/L (46-116); Anion Gap 5 (5-15); Aspartate Aminotransferase 17 U/L (13-40); BUN/Creatinine Ratio 26.3 (10.0-20.0); Bilirubin, Total 1.3 mg/dL (0.2-1.0); Blood Urea Nitrogen 15 mg/dL (9-23); Calcium 9.6 mg/dL (8.7-10.4); Carbon Dioxide 29 mmol/L (20-31); Chloride 105 mmol/L (98-107); Glucose 121 mg/dL (74-106); Magnesium 2.2 mg/dL (1.6-2.6); Potassium 4.1 mmol/L (3.5-5.1); Sodium 139 mmol/L (136-145)
[2023-12-02 07:11] LABS: Total Protein 6.4 g/dL (5.7-8.2)
[2023-12-02] MEDS: PANTOPRAZOLE 40 MG/10 ML VIAL INJ IV SCH (10:23)
[2023-12-02] MEDS: ASPirin 81 mg TAB PO SCH (10:23)
[2023-12-02] MEDS: methylPREDNISolone SOD SUCC 40 MG/ML VL IV SCH (10:23)
[2023-12-02] MEDS: cefTRIAXone 1GM/50ML D5W 50 ML IV ONE (17:26)
[2023-12-02] MEDS: ATORVASTATIN 20 MG TAB PO SCH (21:40)
[2023-12-03] VITALS (12 sets, daily range): BP systolic 142–161; BP diastolic 86–93; PULSE 73–95; RESP 16–20; TEMP 37.4; O2SAT 95–100
[2023-12-03] MEDS: LEVOTHYROXINE SODIUM 100 MCG TAB PO SCH (05:34)
[2023-12-03] MEDS: PANTOPRAZOLE 40 MG TAB PO SCH (05:34)
[2023-12-03 08:27] LABS: Alanine Aminotransferase 22 U/L (7-40); Albumin 4.2 g/dL (3.2-4.8); Alkaline Phosphatase 53 U/L (46-116); Anion Gap 6 (5-15); Aspartate Aminotransferase 13 U/L (13-40); BUN/Creatinine Ratio 26.2 (10.0-20.0); Blood Urea Nitrogen 17 mg/dL (9-23); Carbon Dioxide 30 mmol/L (20-31); Chloride 103 mmol/L (98-107); Glucose 92 mg/dL (74-106); Magnesium 2.1 mg/dL (1.6-2.6); Potassium 4.3 mmol/L (3.5-5.1); Sodium 139 mmol/L (136-145); Total Protein 6.2 g/dL (5.7-8.2)
[2023-12-03 08:31] LABS: Basophils # (auto) 0 10 ^3/uL (0-0.2); Basophils % (auto) 0.2 % (0.0-2.0); Eosinophils # (auto) 0 10 ^3/uL (0-0.8); Hematocrit 38.5 % (36.0-46.0); Hemoglobin 12.9 g/dL (12.2-16.2); Lymphocytes # (auto) 0.8 10 ^3/uL (0.4-5.4); Lymphocytes % (auto) 4.1 % (10.0-50.0); Mean Corpuscular Hemoglobin 30.7 pg (28.0-32.0); Mean Corpuscular Hgb Conc. 33.6 g/dL (32.0-36.0); Mean Corpuscular Volume 91.3 fL (80.0-100.0); Monocytes # (auto) 1.3 10 ^3/uL (0-1.3); Monocytes % (auto) 6.6 % (0.0-12.0); Neutrophils # (auto) 17.8 10 ^3/uL (1.6-8.6); Neutrophils % (auto) 89.1 % (37.0-80.0); Nucleated Red Blood Cells % 0.1 %; Platelet Count (auto) 299 10^3/uL (140-450); Red Blood Cells 4.22 10^6/uL (4.0-5.20); Red Cell Distribution Width 13.4 % (11.8-14.3)
[2023-12-03] MEDS: cefTRIAXone 1GM/50ML D5W 50 ML IV SCH (09:03)
[2023-12-03] MEDS: ENOXAPARIN SOD 40 MG/0.4 ML SYRINGE SC SCH (10:27)
[2023-12-03 11:28] LABS: Urine Bacteria MANY /hpf (None Seen); Urine Blood 2+ /uL (Negative); Urine Hyaline Cast FEW /lpf (0 - 2); Urine Mucus FEW (None Seen); Urine Protein, UAD Negative (Negative); Urine Specific Gravity 1.019 (1.001-1.035); Urine Urobilinogen Normal (Negative); Urine WBC 3 /hpf (0 - 5)
[2023-12-03 11:30] LABS: Urine Clarity Hazy (Clear); Urine Color Yellow (Yellow)
[2023-12-03] MEDS ORDERED: LEVO750T40 PO (13:28)
== END 2023-12-03 15:30 | disposition home or self-care (01) | DRG 189 ==
LOC: ER 03:10 → EDBD 03:10 → TELE 10:08 → TELE-CENTR 15:35
PROVIDERS: ADMIT Internal Medicine; ATTEND Internal Medicine
PROC: 4A023N7 Measurement of Cardiac Sampling and Pressure, Left Heart, Percutaneous Approach (ICD-10-PCS; principal; 2023-12-01)
PROC: B2111ZZ Fluoroscopy of Multiple Coronary Arteries using Low Osmolar Contrast (ICD-10-PCS; 2023-12-01)
DX: J96.21 Acute and chronic respiratory failure with hypoxia (principal); I21.A1 Myocardial infarction type 2; J44.1 Chronic obstructive pulmonary disease with (acute) exacerbation; J45.901 Unspecified asthma with (acute) exacerbation; N30.00 Acute cystitis without hematuria; R65.10 Systemic inflammatory response syndrome (SIRS) of non-infectious origin without acute organ dysfunction; I20.9 Angina pectoris, unspecified; I44.5 Left posterior fascicular block; E80.6 Other disorders of bilirubin metabolism; E03.9 Hypothyroidism, unspecified; I27.23 Pulmonary hypertension due to lung diseases and hypoxia; F10.20 Alcohol dependence, uncomplicated; F17.210 Nicotine dependence, cigarettes, uncomplicated; E66.9 Obesity, unspecified; Z99.81 Dependence on supplemental oxygen; Z90.11 Acquired absence of right breast and nipple; Z88.5 Allergy status to narcotic agent; Z88.0 Allergy status to penicillin; Z88.2 Allergy status to sulfonamides; Z80.0 Family history of malignant neoplasm of digestive organs; Z85.3 Personal history of malignant neoplasm of breast; Z79.899 Other long term (current) drug therapy; Z68.26 Body mass index [BMI] 26.0-26.9, adult
CPT/HCPCS: 36415; 36600; 71045; 80048; 80053; 81001; 82805; 83735; 83880; 84484; 85007; 85025; 85027; 85610; 85730; 93005; 93306; 93458; 94640; 99152; 99291; G0378; J2250; J2470

== ENCOUNTER 2024-02-05 01:26 | Inpatient (IN) | payer MEDICARE, OTHER ==
[~2024-02-05] VITALS: Ht 160 cm; Wt 79.3 kg
[2024-02-05] VITALS (14 sets, daily range): BP systolic 126–162; BP diastolic 64–129; PULSE 79–103; RESP 15–24; TEMP 98.4; O2SAT 93–99
[~2024-02-05 01:26] MED LIST changes: +LEVO750T40 PO; -PRED20TA2 PO
--- NOTE | 2024-02-05 01:35 | ED.PDOC ---
History of Present Illness HPI Comments 73-year-old female with PMHx Asthma, COPD brought in by EMS presents with a chief complaint of SOB x 1 hour. Patient reported to EMS that she was having a COPD exacerbation episode and took 4 breathing treatments at home, but they did not provide her any relief. Patient was sating at 78% on room air according to EMS and was placed on CPAP. Patient was given a breathing treatment with the CPAP and was still only sating at 86%. EMS reports that they then gave IV Magnesium 2g and patient now reports some relief of symptoms. Patient is anxious and attempting to remove her BiPAP mask off. EMS reports blood sugar was 112. Time Seen by MD: 01:25 Primary Care Provider: LOIDA Reviewed Notes: Medications, Allergies Allergies: Coded Allergies: Codeine (Verified Allergy, Unknown, 01/07/23) Hydromorphone (Verified Allergy, Unknown, 01/07/23) Morphine (Verified Allergy, Unknown, 01/07/23) Penicillins (Verified Allergy, Unknown, 01/07/23) Sulfa Antibiotics (Verified Allergy, Unknown, 01/07/23) Home Meds Active Scripts Levofloxacin Hemihydrate (LEVOFLOXACIN) 750 Mg Tab, 1 TAB PO DAILY for 5 Days, #5 TAB Prov:JAQUELINE CALHOUN RESIDENT 12/03/23 Azithromycin (ZITHROMAX TABLET) 250 Mg Tb, 250 MG PO DAILY for 3 Days, #3 TAB Prov:LARA CARLSON MD 10/21/23 Nicotine (Nicoderm 21MG/24HR) 1 Patch Ph, 1 PATCH TD DAILY for 90 Days, #90 PATCH Prov:LARA CARLSON MD 10/21/23 Ergocalciferol (VITAMIN D 46125 UNIT) 50,000 [place], [address] UNIT PO Q7D for 90 Days, #12 CAP Prov:LARA CARLSON MD 10/21/23 Reported Medications Atorvastatin Calcium (ATORVASTATIN CALCIUM) 20 Mg Tab, 1 TAB PO DAILY 05/30/23 Montelukast Sodium (MONTELUKAST SODIUM) 10 Mg Tab, 1 TAB PO DAILY 05/30/23 Budesonide-Formoterol Fumarate (Breyna 160-4.5 Mcg/Act) 1 Aer Aer, 2 INH PO BID 05/30/23 Levothyroxine Sodium (Levothyroxine Sodium) 100 Mcg Tab, 1 TAB PO DAILY 05/30/23 Tiotropium [employer] Monohydrate (Spiriva Respimat) 2.5 Mcg/Act Spr, 2 PUFF INH DAILY 05/30/23 Levalbuterol Tartrate (Levalbuterol Tartrate Hfa) 45 Mcg/Act Aer, 2 PUFF INH Q4HR PRN for SHORTNESS OF BREATH 05/30/23 Ipratropium [employer] Hfa (Atrovent Hfa) 17 Mcg Aer, 2 PUFF INH Q4HR PRN for SHORTNESS OF BREATH 05/30/23 Information Source: Emergency Med Personnel Mode of Arrival: EMS Severity: Moderate Timing: Minutes Duration: Since onset Prehospital treatment: Accucheck (112), Breathing Tx, C-Pap, Treatment (IV Magnesium 2grams) Past Medical History PAST MEDICAL HISTORY: Asthma, Cancer, COPD 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 Family History Family History: Reviewed,noncontributory to illness, Family hx of Cancer Social History Smoker: Cigarettes Alcohol: Denies ETOH Use Drugs: Denies Drug Use Lives In: Home Constitutional: denies: chills, diaphoresis, fatigue, fever, malaise, sweats, weakness, others EENTM: denies: blurred vision, double vision, ear bleeding, ear discharge, ear drainage, ear pain, ear ringing, eye pain, eye redness, hearing loss, mouth pa in, mouth swelling, nasal discharge, nose bleeding, nose congestion, nose pain, photophobia, tearing, throat pain, throat swelling, voice changes, others Respiratory: reports: shortness of breath; denies: cough, hemoptysis, orthopnea, SOB at rest, SOB with excertion, stridor, wheezing, others Cardiovascular: denies: chest pain, dizzy spells, diaphoresis, Dyspnea on exertion, edema, irregular heart beat, left arm pain, lightheadedness, palpitat ions, PND, syncope, others Gastrointestinal: denies: abdomen distended, abdominal pain, blood streaked bow els, constipated, diarrhea, dysphagia, difficulty swallowing, hematemesis, melena, nausea, poor appetite, poor fluid intake, rectal bleeding, rectal pain, vomiting, others Genitourinary: denies: abnormal vagina bleeding, burning, dyspareunia, dysuria, flank pain, frequency, hematuria, incontinence, pain, , vagina discharge, urgency, others Neurological: denies: dizziness, fainting, headache, left sided numbness, left sided weakness, numbness, paresthesia, pre-existing deficit, right sided numbness, right sided weakness, seizure, speech problems, tingling, tremors, weakness, others Musculoskeletal: denies: back pain, gout, joint pain, joint swelling, muscle pain, muscle stiffness, neck pain, others Integumetry: denies: bruises, change in color, change in hair/nails, dryness, laceration, lesions, lumps, rash, wounds, others Allergic/Immunocompromised: denies: Difficulty Healing, Frequent Infections, Hives, Itching, others Hematologic/Lymphatic: denies: anemia, blood clots, easy bleeding, easy bruisi ng, swollen glands, others Endocrine: denies: excessive hunger, excessive sweating, excessive thirst, exce ssive urination, flushing, intolerance to cold, intolerance to heat, unexplained weight gain, unexplained weight loss, others Psychiatric: denies: anxiety, bipolar disorder, depression, hopeless, panic disorder, schizophrenia, sleepless, suicidal, others All Other Systems: Reviewed and Negative Physical Exam General Appearance: No Apparent Distress, Normal HEENT: Normal ENT Inspection, Pharynx Normal, TMs Normal Neck: Full Range of Motion, Non-Tender, Normal, Normal Inspection Respiratory: Accessory Muscle Use, Chest Non-Tender, Respiratory Distress Cardiovascular: No Edema, No JVD, No Murmur, No Gallop, Normal Peripheral Pulses, Regular Rate/Rhythm Breast Exam: Deferred Gastrointestinal: No Organomegaly, Non Tender, No Pulsatile Mass, Normal Bowel Sounds, Soft Genitalia: Deferred Pelvic: Deferred Rectal: Deferred Extremities: No calf tenderness, Normal capillary refill, Normal inspection, Normal range of motion, Non-tender, No pedal edema Musculoskeletal : Apperance: Normal Neurologic: Alert, insurance claims supervisor II-XII nml as Tested, No Motor Deficits, Normal Affect, Normal Mood, No Sensory Deficits Cerebellar Function: Normal Reflexes: Normal Skin: Dry, Normal Color, Warm Lymphatic: No Adenopathy Was a procedure done? Was a procedure done?: No Differential Dx Considerations may include: Pneumonia, CHF, COPD, viral syndrome X-Ray, Labs, Meds, VS Vital Signs Date Time Temp Pulse Resp B/P (MAP) Pulse Ox O2 Delivery O2 Flow Rate FiO2 02/05/24 03:16 127/75 Nasal BiPAP Mask 30 02/05/24 01:51 21 97 Bi-Pap+ 30 30 02/05/24 01:39 96.5 110 30 186/96 (126) 96 02/05/24 01:36 91 02/05/24 01:35 82 160/105 Nasal BiPAP Mask 30 02/05/24 01:28 93 15 96 Bi-Pap+ 30 30 02/05/24 01:28 92 15 160/105 (123) 97 Lab Test 02/05/24 02:54 02/05/24 01:46 Range/Units Troponin I High Sensitivity Pending 3 L </=34 ng/L White Blood Count 8.5 4.4-10.8 10^3/uL Red Blood Count 4.16 4.0-5.20 10^6/uL Hemoglobin 12.7 12.2-16.2 g/dL Hematocrit 38.9 36.0-46.0 % Mean Corpuscular Volume 93.4 80.0-100.0 fL Mean Corpuscular Hemoglobin 30.5 28.0-32.0 pg Mean Corpuscular Hemoglobin Concent 32.6 32.0-36.0 g/dL Red Cell Distribution Width 14.1 11.8-14.3 % Platelet Count 286 140-450 10^3/uL Mean Platelet Volume 6.8 L 6.9-10.8 fL Neutrophils (%) (Auto) 68.3 37.0-80.0 % Lymphocytes (%) (Auto) 22.5 10.0-50.0 % Monocytes (%) (Auto) 7.7 0.0-12.0 % Eosinophils (%) (Auto) 1.0 0.0-7.0 % Basophils (%) (Auto) 0.5 0.0-2.0 % Neutrophils # (Auto) 5.8 1.6-8.6 10 ^3/uL Lymphocytes # (Auto) 1.9 0.4-5.4 10 ^3/uL Monocytes # (Auto) 0.7 0-1.3 10 ^3/uL Eosinophils # (Auto) 0.1 0-0.8 10 ^3/uL Basophils # (Auto) 0 0-0.2 10 ^3/uL Nucleated Red Blood Cells 0.0 % Sodium Level 142 136-145 mmol/L Potassium Level 4.0 3.5-5.1 mmol/L Chloride Level 109 H 98-107 mmol/L Carbon Dioxide Level 26 20-31 mmol/L Anion Gap 7 5-15 Blood Urea Nitrogen 13 9-23 mg/dL Creatinine 0.64 0.550-1.02 mg/dL Glomerular Filtration Rate Calc 92 >90 mL/min BUN/Creatinine Ratio 20.3 H 10.0-20.0 Serum Glucose 100 74-106 mg/dL Lactic Acid Level 1.5 0.4-2.0 mmol/L Calcium Level 9.2 8.7-10.4 mg/dL B-Type Natriuretic Peptide 11.50 0-100 pg/mL Current Medications Medications (Trade) Dose Ordered Sig/Julisa Route Start Time Stop Time Status Last Admin Albuterol (Ventolin Medneb) 5 mg ONCE ONCE NEB 02/05/24 01:45 02/05/24 01:46 DC 02/05/24 01:50 Methylprednisolone Sodium Succinate (Solu Medrol) 62.5 mg ONCE ONCE IV 02/05/24 01:45 02/05/24 01:46 DC 02/05/24 01:45 Ipratropium [employer] (Atrovent Medneb) 0.5 mg ONCE ONCE NEB 02/05/24 01:45 02/05/24 01:46 DC 02/05/24 01:50 Time of 1ST Reevaluation: 01:55 Reevaluation 1ST: Unchanged Patient Education/Counseling: Diagnosis, Treatment, Prognosis Family Education/Counseling: No Family Present Departure 1 Departure Time of Disposition: 03:20 ([employer] Authorization [id number] ChaoPatient presented with acute shortness of breath concerning for acute on chronic COPD Exacerbation, Pneumonia, ACS, CHF, Pneumothorax. Less likely PE, Dissection. Data: 1. I ordered and reviewed the result of at least 3 labs including a CBC, BMP, and Troponin. 2. I independently interpreted the following tests: Chest X- ray shows mild interstitial edema _ .Risk:This patient has a high risk of morbidity due to further diagnostic testing or treatment and may suffer from respiratory or cardiac etiology . Workup reveals a likely COPD Exacerbation and patient should be admitted for further workup. and possible expert consultation.) Impression: Primary Impression: Acute hypoxic respiratory failure Additional Impressions: COPD exacerbation Shortness of breath Disposition: ADMITTED INPATIENT Admit to: [facility] Condition: Serious Critical Care Note Critical Care Time?: Yes Critical care comment: Acute respiratory failure Authorized and Performed by: David Carson MD Total critical care time: Approximately 38 minutes Due to a high probability of clinically significant, life threatening deterioration, the patient required my highest level of preparedness to intervene emergently and I personally spent this critical care time directly and personally managing the patient. This critical care time included obtaining a history; examining the patient; pulse oximetry; ordering and review of studies; arranging urgent treatment with development of a management plan; evaluation of patient's response to treatment; frequent reassessment; and, discussions with other providers. This critical care time was performed to assess and manage the high probability of imminent, life-threatening deterioration that could result in multi-organ failure. It was exclusive of separately billable procedures and treating other patients and teaching time. Please see my other sections and the rest of the note for further information on patient assessment and treatment. Stability Stability form required: No I personally scribed for DAVID CARSON MD ([email or web address]) on 02/05/24 at 01:35. Electronically submitted by Clinton Trammell ([email or web address]). DAVID CARSON MD Feb 05, 2024 01:35
[2024-02-05] MEDS: methylPREDNISolone SOD SUCC 125 MG/2 ML VL IV ONE (01:45)
[2024-02-05] MEDS: IPRATROPIUM BROM 0.5 MG/2.5ML INH SOL NEB ONE (01:50)
[2024-02-05] MEDS: ALBUTEROL SULF 2.5 MG/0.5ML(0.5%) NEB SOLN NEB ONE (01:50)
[2024-02-05 01:55] LABS: Basophils # (auto) 0 10 ^3/uL (0-0.2); Basophils % (auto) 0.5 % (0.0-2.0); Eosinophils # (auto) 0.1 10 ^3/uL (0-0.8); Hematocrit 38.9 % (36.0-46.0); Hemoglobin 12.7 g/dL (12.2-16.2); Lymphocytes # (auto) 1.9 10 ^3/uL (0.4-5.4); Lymphocytes % (auto) 22.5 % (10.0-50.0); Mean Corpuscular Hemoglobin 30.5 pg (28.0-32.0); Mean Corpuscular Hgb Conc. 32.6 g/dL (32.0-36.0); Mean Corpuscular Volume 93.4 fL (80.0-100.0); Monocytes # (auto) 0.7 10 ^3/uL (0-1.3); Monocytes % (auto) 7.7 % (0.0-12.0); Neutrophils # (auto) 5.8 10 ^3/uL (1.6-8.6); Neutrophils % (auto) 68.3 % (37.0-80.0); Platelet Count (auto) 286 10^3/uL (140-450); Red Blood Cells 4.16 10^6/uL (4.0-5.20); Red Cell Distribution Width 14.1 % (11.8-14.3); White Blood Cell 8.5 10^3/uL (4.4-10.8)
--- NOTE | 2024-02-05 02:02 | DVH ---
CHEST RADIOGRAPH Indication: sob Technique: Single frontal view of the chest was obtained COMPARISON: XY CHEST PORTABLE on DOS: 12/01/23, XY CHEST XRAY 1 VIEW on DOS: 10/18/23, XY CHEST PORTABL E on DOS: 10/05/23, XY CHEST XRAY 1 VIEW on DOS: 09/03/23, XY CHEST PORTABLE on DOS: 05/31/23 FINDINGS: Lines and Tubes: None Lungs: Questionable mild interstitial pulmonary edema. Pleura: No effusion. No pneumothorax. Cardiomediastinal contours: Borderline cardiomegaly. Bones: Unremarkable IMPRESSION: 1. Questionable mild interstitial pulmonary edema
[2024-02-05 02:04] LABS: Sodium 142 mmol/L (136-145)
[2024-02-05 02:05] LABS: Anion Gap 7 (5-15); Calcium 9.2 mg/dL (8.7-10.4); Carbon Dioxide 26 mmol/L (20-31)
[2024-02-05 02:10] LABS: BUN/Creatinine Ratio 20.3 (10.0-20.0); Blood Urea Nitrogen 13 mg/dL (9-23); Glucose 100 mg/dL (74-106)
[2024-02-05 02:16] LABS: Chloride 109 mmol/L (98-107)
[2024-02-05] MEDS ORDERED: ACETAMINOPHEN 325 MG TAB PO PRN ×2 (03:45)
[2024-02-05] MEDS: FUROSEMIDE 20 MG/2 ML VIAL IV ONE (04:37)
[2024-02-05 04:42] LABS: Alanine Aminotransferase 20 U/L (7-40); Alkaline Phosphatase 52 U/L (46-116); Anion Gap 7 (5-15); Aspartate Aminotransferase 16 U/L (13-40); BUN/Creatinine Ratio 27.5 (10.0-20.0); Bilirubin, Total 0.9 mg/dL (0.2-1.0); Blood Urea Nitrogen 14 mg/dL (9-23); Calcium 9.1 mg/dL (8.7-10.4); Carbon Dioxide 27 mmol/L (20-31); Glucose 91 mg/dL (74-106); Sodium 142 mmol/L (136-145); Total Protein 6.1 g/dL (5.7-8.2)
--- NOTE | 2024-02-05 04:42 | DVHHPRES ---
History of Present Illness Resident Creating Document: JAMIRRAYMOND RESIDENT History of Present Illness Patient is a 73-year-old female with a past medical history are described below came to the ED with a chief complaint of worsening shortness of breath since the past 3-4 weeks. Patient reports that since the last 3-4 weeks she has been getting out of breath and has difficulty breathing even while using her home oxygen 4 L/min via nasal cannula with progressive worsening in the last week. She reports using nebulizer treatment 4-6 times every day since the past 1 month but yesterday she had no relief with the nebulizer following which she called 911 and EMS brought her to ED for further evaluation. Patient denied recent sick contact, flu-like symptoms cough cold coryza fever or chills, chest pain, dizziness, headache, orthopnea, PND. According to the report from the ED patient was given magnesium IV 2 g by the EMS. Patient has been admitted to the hospital in November 2023 for similar complaint of shortness of breath and chest pain when she was treated was COPD exacerbation and sent home on 4 L O2 and diagnosed NSTEMI likely type 2 with a left heart catheterization showing no significant coronary artery disease and no stents were placed. Past medical history: Asthma, COPD, pneumonia, hypothyroidism, dyslipidemia Past surgical history: Breast CA status post mastectomy, knee surgery Social history: Patient reports 40 years smoking history less than 1 pack per day, currently smokes and drinks occasionally , denies drug use Home medications: Atorvastatin 20 mg, levalbuterol and ipratropium magnum, levothyroxine 100 mcg Review of Systems Review of Systems Patient seen at bedside Patient is currently on BiPAP with no acute respiratory distress and reports feeling a lot better than when she came to the ED. BiPAP settings IPAP 15, EPAP 5, FiO2 30% Patient denied chest pain, abdominal pain, dysuria, nausea, vomiting, diarrhea. Allergies: Coded Allergies: Codeine (Verified Allergy, Unknown, 01/07/23) Hydromorphone (Verified Allergy, Unknown, 01/07/23) Morphine (Verified Allergy, Unknown, 01/07/23) Penicillins (Verified Allergy, Unknown, 01/07/23) Sulfa Antibiotics (Verified Allergy, Unknown, 01/07/23) Medications Current Medications Medications Dose Ordered Sig/Julisa Route Start Time Stop Time Status Last Admin Dose Admin Methylprednisolone Sodium Succinate 40 mg BID IV 02/05/24 10:00 UNV Levofloxacin/ Dextrose 150 ml @ 100 mls/hr DAILY IV 02/05/24 08:00 UNV Albuterol 2.5 mg Q6HR NEB 02/05/24 06:00 UNV Ipratropium [place] 0.5 mg Q6HR NEB 02/05/24 06:00 UNV Acetaminophen 650 mg Q4HP PRN PO 02/05/24 03:45 UNV Acetaminophen 650 mg Q4HP PRN PO 02/05/24 03:45 UNV Exam Vital Signs Vital Signs Date Time Temp Pulse Resp B/P (MAP) Pulse Ox O2 Delivery O2 Flow Rate FiO2 02/05/24 03:16 127/75 Nasal BiPAP Mask 30 02/05/24 01:51 21 97 02/05/24 01:39 96.5 110 Exam Physical Examination Constitutional: Alert and oriented to time, place and person. Patient does not appear to be in respiratory distress on BiPAP and reading at a rate of 18 to 22 per minute Gen - no pallor, no icterus, no cyanosis, no clubbing, no LAD, no edema . Skin - Patients skin is warm and dry. HEENT - normocephalic, atraumatic, dry mucous membranes. Neck - full ROM, no LAD, JVP waveform is not seen. Pulmonary - B/L decreased breath sounds with bibasilar mild coarse crackles, scattered B/L expiratory wheezing, no accessory muscle use cardiovascular - faint S1,S2 heard. no murmurs heard. peripheral pulses radial 2+, pedal 2+. capillary refill normal <2 secs. GI - soft abdomen without tenderness to palpation . no hepatospleenomegaly. Bowel sounds normoactive Neurological - Patient is A/O X 3 . Bilateral upper extremity strength 5/5, bilateral lower extremity strength 5/5, no facial droop, normal speech, no tremor, no sensory deficiets. Labs/Xrays Labs Test 02/05/24 02:54 02/05/24 01:46 Range/Units Troponin I High Sensitivity 3 L </=34 ng/L White Blood Count 8.5 4.4-10.8 10^3/uL Red Blood Count 4.16 4.0-5.20 10^6/uL Hemoglobin 12.7 12.2-16.2 g/dL Hematocrit 38.9 36.0-46.0 % Mean Corpuscular Volume 93.4 80.0-100.0 fL Mean Corpuscular Hemoglobin 30.5 28.0-32.0 pg Mean Corpuscular Hemoglobin Concent 32.6 32.0-36.0 g/dL Red Cell Distribution Width 14.1 11.8-14.3 % Platelet Count 286 140-450 10^3/uL Mean Platelet Volume 6.8 L 6.9-10.8 fL Neutrophils (%) (Auto) 68.3 37.0-80.0 % Lymphocytes (%) (Auto) 22.5 10.0-50.0 % Monocytes (%) (Auto) 7.7 0.0-12.0 % Eosinophils (%) (Auto) 1.0 0.0-7.0 % Basophils (%) (Auto) 0.5 0.0-2.0 % Neutrophils # (Auto) 5.8 1.6-8.6 10 ^3/uL Lymphocytes # (Auto) 1.9 0.4-5.4 10 ^3/uL Monocytes # (Auto) 0.7 0-1.3 10 ^3/uL Eosinophils # (Auto) 0.1 0-0.8 10 ^3/uL Basophils # (Auto) 0 0-0.2 10 ^3/uL Nucleated Red Blood Cells 0.0 % Sodium Level 142 136-145 mmol/L Potassium Level 4.0 3.5-5.1 mmol/L Chloride Level 109 H 98-107 mmol/L Carbon Dioxide Level 26 20-31 mmol/L Anion Gap 7 5-15 Blood Urea Nitrogen 13 9-23 mg/dL Creatinine 0.64 0.550-1.02 mg/dL Glomerular Filtration Rate Calc 92 >90 mL/min BUN/Creatinine Ratio 20.3 H 10.0-20.0 Serum Glucose 100 74-106 mg/dL Lactic Acid Level 1.5 0.4-2.0 mmol/L Calcium Level 9.2 8.7-10.4 mg/dL B-Type Natriuretic Peptide 11.50 0-100 pg/mL Assessment/Plan Assessment/Plan # acute hypoxic respiratory failure # acute COPD exacerbation # suspected community-acquired pneumonia likely d/t ?Gram+/- ? atypical bacteria ?viral - on BiPAP with IPAP 15, EPAP 5, FiO2 30%, goal SpO2 more than 92% - given methylprednisolone 62.5 mg IV in the ER - on methylprednisolone 40 mg IV b.i.d. - levofloxacin 750 mg IV q.d. - albuterol 2.5 mg and ipratropium 0.5 mg inhaler q.6 hours - COVID and influenza pending - MRSA pending - sputum culture pending # suspected acute diastolic heart failure exacerbation # hypertensive heart disease - ECHO November 2023 shows LVEF 65%, left atrium enlarged - chest x-ray shows ?interstitial edema more on the right - furosemide 20 mg IV once - hydralazine 10 mg IV for SBP>170 mmHg p.r.n. # hypothyroidism - on levothyroxine 100 mcg q.a.m. Goals of care discussed with the patient for over 23 minutes. Full code Plan discussed with Dr. Benavides Plan discussed with: Patient My Orders Orders - RAYMOND BOWIE RESIDENT Procedure Category Date Status Time Admit ADMIT 02/05/24 Transmitted 03:43 Oxygen By Nasal RT 02/05/24 Transmitted Cannula 03:43 Log Hauler For [facility] 02/05/24 In Process 24 Hours 03:43 Emergency Dysrhythmia [facility] 02/05/24 In Process Protocol 03:43 Comprehensive LAB 02/05/24 Logged Metabolic Panel 03:45 Methylprednisolone PHA 02/05/24 Logged Sod Succ (Solu Medrol 10:00 Levofloxacin 750mg PHA 02/05/24 Logged (Levaquin) 08:00 Albuterol Medneb PHA 02/05/24 Logged (Ventolin Medneb) 06:00 Ipratropium Medneb PHA 02/05/24 Logged (Atrovent Medneb) 06:00 Acetaminophen Tablet PHA 02/05/24 Logged (Tylenol Tablet) 03:45 Acetaminophen Tablet PHA 02/05/24 Logged (Tylenol Tablet) 03:45 Urinalysis LAB 02/05/24 Logged 03:45 Drug Screen LAB 02/05/24 Logged 03:45 Furosemide Injection PHA 02/05/24 Verified (Lasix Injection) 04:15 Date of Service: Feb 05, 2024 Billing Provider: SONA BENAVIDES MD Common Visit Codes: [id number] INP/OBS CARE (HIGH) Secondary Visit Codes: [id number] CARE PLAN 30 MINUTES RAYMOND BOWIE RESIDENT Feb 05, 2024 04:42 SONA BENAVIDES MD Feb 05, 2024 10:00
[2024-02-05] MEDS: hydrALAZINE HCL 20 MG/ML VL IV PRN (04:47)
[2024-02-05] MEDS: KETAMINE 50mg/ML 10ml Vial (500mg/10ml) IV ONE (04:56)
[2024-02-05 05:03] LABS: Chloride 108 mmol/L (98-107)
[2024-02-05 05:18] LABS: Urine Bacteria MANY /hpf (None Seen); Urine Blood Negative /uL (Negative); Urine Clarity Clear (Clear); Urine Color Light-Yellow (Yellow); Urine Mucus FEW (None Seen); Urine Protein, UAD Negative (Negative); Urine Specific Gravity 1.019 (1.001-1.035); Urine Urobilinogen Normal (Negative); Urine WBC 5 /hpf (0 - 5); Urine pH 6.5 (5.0-9.0)
[2024-02-05 05:19] LABS: Amphetamine Screen, Urine Neg (NEGATIVE); Barbiturate Scree,Urine Neg (NEGATIVE); Benzodiazephine Screen, Urine Neg (NEGATIVE); Cannabinoid Screen, Urine Neg (NEGATIVE); Cocaine Screen, Urine Neg (NEGATIVE); Opiate Scree,Urine Neg (NEGATIVE); Phencyclidine Screen, Urine Neg (NEGATIVE)
[2024-02-05 05:32] LABS: COVID19 ANTIGEN SOFIA FIA NEGATIVE (NEGATIVE); Rapid Influenza A Negative (Negative); Rapid Influenza B Negative (Negative)
[2024-02-05] MEDS: LEVOTHYROXINE SODIUM 100 MCG TAB PO SCH (06:29)
[2024-02-05] MEDS: IPRATROPIUM BROM 0.5 MG/2.5ML INH SOL NEB SCH (06:54)
[2024-02-05] MEDS: ALBUTEROL SULF 2.5 MG/0.5ML(0.5%) NEB SOLN NEB SCH (06:54)
[2024-02-05] MEDS: levoFLOXacin 750MG 150 ML IV SCH (08:21)
[2024-02-05] MEDS: methylPREDNISolone SOD SUCC 40 MG/ML VL IV SCH (10:12)
--- NOTE | 2024-02-05 10:50 | DVHPN2 ---
Progress Note Date Seen: Feb 05, 2024 Medical Necessity Reason Pt with a Central, PICC or Fol: No Subjective Patient reports: No new complaints Review of Systems: HEENT:Normal, CVS:Normal, RESPIRATORY:Normal, GI:Normal, :Normal, MSK:Normal, NEURO:Normal Objective vital signs Vital Sign Date Time Temp Pulse Resp B/P (MAP) Pulse Ox O2 Delivery O2 Flow Rate FiO2 02/05/24 09:44 162/129 96 3.0 02/05/24 09:01 113 20 02/05/24 08:15 Bi-Pap+ 30 30 02/05/24 01:39 96.5 medications Current Medications Medications Dose Ordered Sig/Julisa Route Start Time Stop Time Status Last Admin Dose Admin Methylprednisolone Sodium Succinate 40 mg BID IV 02/05/24 10:00 02/05/24 10:12 40 MG Levofloxacin/ Dextrose 150 ml @ 100 mls/hr DAILY IV 02/05/24 08:00 02/05/24 08:21 100 MLS/HR Albuterol 2.5 mg Q6HR NEB 02/05/24 06:00 02/05/24 06:54 2.5 MG Ipratropium [place] 0.5 mg Q6HR NEB 02/05/24 06:00 02/05/24 06:54 0.5 MG Acetaminophen 650 mg Q4HP PRN PO 02/05/24 03:45 Acetaminophen 650 mg Q4HP PRN PO 02/05/24 03:45 Hydralazine HCl 10 mg Q6HP PRN IV 02/05/24 04:30 02/05/24 04:47 10 MG Levothyroxine Sodium 100 mcg QAM@0600 PO 02/05/24 06:00 02/05/24 06:29 100 MCG Examination: GENERAL:Normal, HEENT:Normal, NECK:Normal, LUNGS:Normal, LUNGS:Abnormal (on bipap/oxymizer, decreased bilateral), CVS:Normal, ABDOMEN:Normal, MSK:Normal, SKIN:Normal, NEURO:Normal, :Normal laboratory and microbiology Laboratory Tests 02/05/24 02:54 02/05/24 01:46 Test 02/05/24 02:54 Range/Units Serum Glucose 91 74-106 mg/dL Problem List/Assessment/Plan Problem List/Assessment/Plan #1 acute on chronic resp failure: on oxymizer, prn bipap #2 copd with exacerbation: iv steroids #3 ?pneumonia: iv levaquin #4 ? acute diastolic heart failure #5 obesity #6 hypothyroidism: cont meds #7 hyperlipidemia #8 recently quit smoking unstable for transfer Plan discussed with: Patient Critical Care Time (mins): 37 (critical care time 37 mins) Date of Service: Feb 05, 2024 Billing Provider: DAWIT CARNEY MD Common Visit Codes: [id number] CARE 30-74 MIN DAWIT CARNEY MD Feb 05, 2024 10:50
[2024-02-05] MEDS: ALBUTEROL SULF 2.5 MG/0.5ML(0.5%) NEB SOLN NEB PRN (16:32)
[2024-02-06] VITALS (11 sets, daily range): BP systolic 117–145; BP diastolic 72–76; PULSE 71–90; RESP 16–18; TEMP 98.1–98.4; O2SAT 96–100
[2024-02-06 07:09] LABS: Anion Gap 5 (5-15); Carbon Dioxide 27 mmol/L (20-31); Chloride 104 mmol/L (98-107); Potassium 4.1 mmol/L (3.5-5.1); Sodium 136 mmol/L (136-145)
[2024-02-06 07:11] LABS: Calcium 9.6 mg/dL (8.7-10.4)
[2024-02-06 07:16] LABS: Blood Urea Nitrogen 13 mg/dL (9-23)
[2024-02-06 07:18] LABS: Glucose 123 mg/dL (74-106)
[2024-02-06 07:21] LABS: Basophils # (auto) 0 10 ^3/uL (0-0.2); Basophils % (auto) 0.1 % (0.0-2.0); Eosinophils # (auto) 0 10 ^3/uL (0-0.8); Hematocrit 37.1 % (36.0-46.0); Hemoglobin 12.1 g/dL (12.2-16.2); Lymphocytes # (auto) 0.8 10 ^3/uL (0.4-5.4); Lymphocytes % (auto) 6.5 % (10.0-50.0); Mean Corpuscular Hemoglobin 29.8 pg (28.0-32.0); Mean Corpuscular Hgb Conc. 32.7 g/dL (32.0-36.0); Mean Corpuscular Volume 91.1 fL (80.0-100.0); Monocytes # (auto) 0.4 10 ^3/uL (0-1.3); Monocytes % (auto) 3.7 % (0.0-12.0); Neutrophils # (auto) 10.9 10 ^3/uL (1.6-8.6); Neutrophils % (auto) 89.7 % (37.0-80.0); Platelet Count (auto) 320 10^3/uL (140-450); Red Blood Cells 4.07 10^6/uL (4.0-5.20); Red Cell Distribution Width 14.1 % (11.8-14.3); White Blood Cell 12.1 10^3/uL (4.4-10.8)
--- NOTE | 2024-02-06 08:14 | DVH ---
CHEST RADIOGRAPH Indication: copd Technique: Single frontal view of the chest was obtained Comparison: XY CHEST PORTABLE on DOS: 02/05/24 FINDINGS: Lines and Tubes: None Lungs: Linear opacities in the left mid lung. Pleura: No effusion. No pneumothorax. Cardiomediastinal contours: Unremarkable Bones: No acute osseous abnormality. IMPRESSION: 1. Scarring in the left mid lung. No focal pulmonary consolidation.
--- NOTE | 2024-02-06 11:14 | DVHDS2 ---
Discharge Summary Date of Admission Feb 05, 2024 at 03:43 Date of Discharge: Feb 06, 2024 Labs/Diagnostic Data: Laboratory Results Test 02/06/24 05:44 02/05/24 04:41 02/05/24 04:15 02/05/24 02:54 White Blood Count 12.1 10^3/uL (4.4-10.8) Red Blood Count 4.07 10^6/uL (4.0-5.20) Hemoglobin 12.1 g/dL (12.2-16.2) Hematocrit 37.1 % (36.0-46.0) Mean Corpuscular Volume 91.1 fL (80.0-100.0) Mean Corpuscular Hemoglobin 29.8 pg (28.0-32.0) Mean Corpuscular Hemoglobin Concent 32.7 g/dL (32.0-36.0) Red Cell Distribution Width 14.1 % (11.8-14.3) Platelet Count 320 10^3/uL (140-450) Mean Platelet Volume 7.1 fL (6.9-10.8) Neutrophils (%) (Auto) 89.7 % (37.0-80.0) Lymphocytes (%) (Auto) 6.5 % (10.0-50.0) Monocytes (%) (Auto) 3.7 % (0.0-12.0) Eosinophils (%) (Auto) 0.0 % (0.0-7.0) Basophils (%) (Auto) 0.1 % (0.0-2.0) Neutrophils # (Auto) 10.9 10 ^3/uL (1.6-8.6) Lymphocytes # (Auto) 0.8 10 ^3/uL (0.4-5.4) Monocytes # (Auto) 0.4 10 ^3/uL (0-1.3) Eosinophils # (Auto) 0 10 ^3/uL (0-0.8) Basophils # (Auto) 0 10 ^3/uL (0-0.2) Nucleated Red Blood Cells 0.0 % Sodium Level 136 mmol/L (136-145) Potassium Level 4.1 mmol/L (3.5-5.1) Chloride Level 104 mmol/L (98-107) Carbon Dioxide Level 27 mmol/L (20-31) Anion Gap 5 (5-15) Blood Urea Nitrogen 13 mg/dL (9-23) Creatinine 0.65 mg/dL (0.550-1.02) Glomerular Filtration Rate Calc 92 mL/min (>90) BUN/Creatinine Ratio 20.0 (10.0-20.0) Serum Glucose 123 mg/dL (74-106) Calcium Level 9.6 mg/dL (8.7-10.4) Influenza Type A Antigen Negative (Negative) Influenza Type B Antigen Negative (Negative) SARS-CoV-2 Antigen (Rapid) Negative (NEGATIVE) Urine Color Light-yellow (Yellow) Urine Clarity Clear (Clear) Urine pH 6.5 (5.0-9.0) Urine Specific [place] 1.019 (1.001-1.035) Urine Protein Negative (Negative) Urine Ketones Negative (Negative) Urine Blood Negative /uL (Negative) Urine Nitrite Negative (Negative) Urine Bilirubin Negative (Negative) Urine Urobilinogen Normal mg/dL (Negative) Urine Leukocyte Esterase 1+ /uL (Negative) Urine RBC 1 /hpf (0 - 4) Urine WBC 5 /hpf (0 - 5) Urine Squamous Epithelial Cells Few /hpf (<5) Urine Bacteria Many /hpf (None Seen) Urine Mucus Few (None Seen) Urine Glucose Normal mg/dL (Normal) Urine Opiates Screen Neg (NEGATIVE) Urine Fentanyl Screen Neg (NEGATIVE) Urine Barbiturates Screen Neg (NEGATIVE) Urine Phencyclidine Screen Neg (NEGATIVE) Urine Amphetamines Screen Neg (NEGATIVE) Urine Benzodiazepines Screen Neg (NEGATIVE) Urine Cocaine Screen Neg (NEGATIVE) Urine Cannabinoids Screen Neg (NEGATIVE) Total Bilirubin 0.9 mg/dL (0.2-1.0) Aspartate Amino Transferase (AST) 16 U/L (13-40) Alanine Aminotransferase (ALT) 20 U/L (7-40) Alkaline Phosphatase 52 U/L (46-116) Troponin I High Sensitivity 3 ng/L (</=34) Total Protein 6.1 g/dL (5.7-8.2) Albumin 4.0 g/dL (3.2-4.8) Test 02/05/24 01:46 Lactic Acid Level 1.5 mmol/L (0.4-2.0) B-Type Natriuretic Peptide 11.50 pg/mL (0-100) Other Laboratory Tests 02/06/24 05:44 Brief Hx & Hospital Course: see dictated note Condition at Discharge: Fair Final Diagnosis/Problems List copd Discharge Disposition: Home Discharge Instruct/Medications Diet: Cardiac 2g Na,low cholest Activity: No Restrictions, As Tolerated Follow Up/Referral: fu with ciro Medications: resume home meds adjust prednisone as discussed with script to pharmacy Discharge Statement: "Patient was advised to return to the ER or call 911 if any headaches, dizziness, shortness of breath, chest pain, abdominal pain, bleeding, fevers, or worsening of medical condition. Patient was counseled about treatment plan, medications, possible side effects, patientverbalized understanding. All questions were answered to the best of my ability. This discharge took greater then 30 minutes in planning, reviewing documentation, counseling the patient, and discussing with other team members." ASSESSMENT ASSESSMENT Assessment copd Date of Service: Feb 06, 2024 Billing Provider: DAWIT CARNEY MD Common Visit Codes: 32688-EPP/OBS DISCH DAY >30min DAWIT CARNEY MD Feb 06, 2024 11:14
[2024-02-06] MEDS ORDERED: POTA-211 PO (11:17)
[2024-02-06] MEDS ORDERED: FURO1TAB33 PO (11:17)
--- NOTE | 2024-02-06 11:19 | CODING ---
Date of Service: Feb 06, 2024 Billing Provider: DAWIT CARNEY MD Common Visit Codes: 06894-EET/OBS DISCH DAY >30min Secondary Visit Codes: 85090-MSXPRUEB CARE PLAN 30 MINUTES DAWIT CARNEY MD Feb 06, 2024 11:19
--- NOTE | 2024-02-06 11:27 | ECG ---
[facility] [place] Test Date: 2024-02-05 Test Time: 01:36:09 Pat Name: PRIYA BURCIAGA Department: ED Room: [facility]2T B Gender: F Vp Design: JUANPABLO : 1950 Requested By: DAVID GROSSMAN Order Number: [id number] Reading MD: Saji Jacobs Measurements Intervals [place] Rate: 91 P: 64 PA: 160 QRS: 33 QRSD: 129 T: 44 QT: 346 QTc: 426 Interpretive Statements Sinus rhythm Nonspecific intraventricular conduction delay Electronically Signed On 02-06-2024 13:08:07 PST by Saji Jacobs Please click the below link to view image of tracing.
--- NOTE | 2024-02-06 11:33 | DVHDS ---
DATE OF DISCHARGE: 02/06/2024 The patient is a 73-year-old lady who came with history of increasing shortness of breath. She has history of COPD, hypothyroidism, and hyperlipidemia and recently quit smoking. HOSPITAL COURSE: The patient was treated with steroids along with bronchodilators. The patient had a chest x-ray that showed mild pulmonary interstitial edema and she was diuresed with intravenous Lasix. The patient had a recent echocardiogram that showed ejection fraction of 60%. The patient will now be discharged home to resume her home medications as well as to be on Lasix 20 mg daily along with potassium 10 mEq daily p.r.n. The patient will also increase her prednisone dose to 30 mg for about a week. I have discussed this plan in detail with the at the bedside. FINAL DIAGNOSES: * [id number] respiratory failure. * Chronic obstructive pulmonary disease exacerbation. * Questionable pneumonia. * Likely acute diastolic heart failure. * Obesity. * Hypothyroidism. * Hyperlipidemia. ADVANCE CARE PLANNING: The patient is a full code.Time spent was 19 minutes. Time spent in discharge planning was 39 minutes. MD HEIDY Graf/EDEL/HARSHAL TID: [id number] RECEIPT: [id number]
== END 2024-02-06 12:39 | disposition home or self-care (01) | DRG 177 ==
LOC: EDBD 01:26 → ER 01:26 → TELE 03:43 → TELE-WESTW 20:50
PROVIDERS: ADMIT Internal Medicine; ATTEND Internal Medicine
PROC: 5A09357 Assistance with Respiratory Ventilation, Less than 24 Consecutive Hours, Continuous Positive Airway Pressure (ICD-10-PCS; principal; 2024-02-05)
DX: J15.69 Pneumonia due to other Gram-negative bacteria (principal); I50.31 Acute diastolic (congestive) heart failure; J96.21 Acute and chronic respiratory failure with hypoxia; J44.1 Chronic obstructive pulmonary disease with (acute) exacerbation; J44.0 Chronic obstructive pulmonary disease with (acute) lower respiratory infection; I11.0 Hypertensive heart disease with heart failure; J18.9 Pneumonia, unspecified organism; J15.9 Unspecified bacterial pneumonia; Z20.822 Contact with and (suspected) exposure to COVID-19; E03.9 Hypothyroidism, unspecified; E78.5 Hyperlipidemia, unspecified; E66.9 Obesity, unspecified; Z68.31 Body mass index [BMI] 31.0-31.9, adult; Z88.5 Allergy status to narcotic agent; Z88.0 Allergy status to penicillin; Z88.2 Allergy status to sulfonamides; Z79.899 Other long term (current) drug therapy; Z87.891 Personal history of nicotine dependence
CPT/HCPCS: 36415; 71045; 80048; 80053; 80307; 81001; 83605; 83880; 84484; 85025; 87081; 87086; 87426; 87804; 93005; 94640; 94660; 96365; 96375; 99291; G0378; J1956